=== PATIENT | female | born 1950 | race Caucasian/White ===

== ENCOUNTER 2017-03-29 08:27 | Inpatient (IN) | payer BC ==
[2017-03-29] VITALS (7 sets, daily range): BP systolic 113–161; BP diastolic 48–88
[~2017-03-29] VITALS: Ht 175.3 cm; Wt 125.2 kg
--- NOTE | ~2017-03-29 | 2DMMODE ---
[facility] [address] [place] [address] 2 D/M-MODE ECHOCARDIOGRAM Name: KATHERINE MATHEWS Room #: 201-P [facility]#: [id number] Admission: 03/29/17 Attend Phys: Doug Freeman, Discharge: Date of : 54 Date of Service: 03/29/17 1650 Report #: [id number] THIS REPORT FOR: //name// APPROVED REPORT Study performed: 03/29/2017 14:45:09 EXAM: Comprehensive 2D, Doppler, and color-flow Echocardiogram Patient Location: Bedside Room #: 2012 Status: routine BSA: 2.37 HR: 92 bpm BP: 126/69 mmHg Rhythm: Atrial Fibrillation Other Information Study Quality: Adequate Indications Aortic Valve Disease Atrial Fibrillation Chest Pain Hypertension/HDD Echo Enhancing Agent Indication: Endocardial border delineation Agent(s) / Amount(s) Used: Optison 4 cc 2D Dimensions RVDd: 36.37 mm LVEF(%): 45.30 (>50%) IVSd: 13.46 (7-11mm) LVOT Diam: 21.03 (18-24mm) LVDd: 45.02 mm PWd: 13.40 (7-11mm) Ascending Ao: 30.36 (22-36mm) LVDs: 34.93 (25-40mm) Aortic Root: 28.04 mm Robb's LVEF: 45.30 % Volumes Left Atrial Volume (Systole) Single Plane 4CH: 90.26 mL Single Plane 2CH: 66.75 mL LA ESV Index: 37.00 mL/m2 Aortic Valve AoV Peak Landon.: 1.59 m/s [facility] [address] [place] [address] 2 D/M-MODE ECHOCARDIOGRAM Name: REIDKATHERINE Room #: 201-P [facility] IN [facility].#: [id number] Admission: 03/29/17 Attend Phys: Doug Freeman, Discharge: Date of : 54 Date of Service: 03/29/17 1650 Report #: [id number] AO Peak Gr.: 10.09 mmHg LVOT Max P.57 mmHg LVOT Max V: 1.18 m/s JORGE Vmax: 2.58 cm2 AI Vmax: 4.55 m/s AI [place]: 3.40 m/s2 AI PHT: 389.51 ms Pulmonary Valve PV Peak Landon.: 1.14 m/s PV Peak Gr.: 5.19 mmHg Tricuspid Valve TR Peak Landon.: 2.43 m/s TR Peak Gr.: 23.65 mmHg PA Pressure: 24.00 mmHg Left Ventricle The left ventricle is normal size. Mild concentric left ventricular hypertrophy. The left ventricular systolic function is normal. The left ventricular ejection fraction is within the normal range. LVEF is 55-60%. This study is not technically sufficient to allow evaluation of the LV diastolic function due to atrial fibrillation. Right Ventricle The right ventricle is normal size. The right ventricular systolic function is normal. Atria Left atrium is dilated. The right atrium size is normal. Aortic Valve The aortic valve is normal in structure. Aortic valve is calcified. Moderate aortic regurgitation. There is no aortic valvular stenosis. Mitral Valve The mitral valve is normal in structure. Trace to mild mitral regurgitation. No evidence of mitral valve stenosis. Tricuspid Valve The tricuspid valve is normal in structure. There is trace tricuspid regurgitation. Estimated PAP 24 mmHg plus the right atrial pressure. There is no pulmonary hypertension. Pulmonic Valve The pulmonary valve is normal in structure. Trace pulmonic [facility] [address] [place] [address] 2 D/M-MODE ECHOCARDIOGRAM Name: KATHERINE MATHEWS Room #: 201-P [facility] IN .R.#: [id number] Admission: 03/29/17 Attend Phys: Doug Freeman, Discharge: Date of : 54 Date of Service: 03/29/17 1650 Report #: [id number] regurgitation. Great Vessels The aortic root is normal in size. IVC is not well visualized. Pericardium There is no pericardial effusion. <Conclusion> The left ventricle is normal size. LVEF is 55-60%. Left atrium is dilated. The aortic valve is normal in structure. Aortic valve is calcified. Moderate aortic regurgitation. The mitral valve is normal in structure. Trace to mild mitral regurgitation. The tricuspid valve is normal in structure. There is trace tricuspid regurgitation. Estimated PAP 24 mmHg plus the right atrial pressure. There is no pulmonary hypertension. The pulmonary valve is normal in structure. Trace pulmonic regurgitation. There is no pericardial effusion. <ELECTRONICALLY SIGNED> By: Nelson Reeder MD 03/29/171649 49 49 Nelson Reeder MD /INF
--- NOTE | ~2017-03-29 | EKG ---
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 : 1950 Requested By: Brent Butcher Order Number: [id number] MD: Kole Bolden Measurements Intervals [place] Rate: 157 P: [place]: QRS: 18 QRSD: 87 T: 175 QT: 289 QTc: 468 Interpretive Statements Supraventricular tachycardia Repolarization abnormality, prob rate related No previous ECG available for comparison Electronically Signed On 03-29-2017 9:12:00 EMERGENCY DOCTOR by Kole Bolden [email or web address] <ELECTRONICALLY SIGNED> By: Kole Bolden MD, [facility] 03/29/17 0912 0836 0836 Kole Bolden MD, FACC /EPI
--- NOTE | ~2017-03-29 | HC ---
[facility] [place] [address] [place] [address] CONSULTATION Name: KATHERINE MATHEWS Room #: 201-P [facility] M.R.#: [id number] Admission: 03/29/17 Attend Phys: Doug Freeman MD Discharge: Date of : 54 Report #: [id number] THIS REPORT FOR: //name// CC: Abigail Freeman DATE OF SERVICE: 03/29/2017 INFECTIOUS DISEASE CONSULTATION REASON FOR CONSULTATION: Leukocytosis, fever. HISTORY OF PRESENT ILLNESS: A 66-year-old white woman admitted with atrial fibrillation with rapid ventricular response, started on Cardizem and the patient relates unwell since Monday and she is running some fevers up to 101.3. Also, has noted having dark color urine and foul-smelling urine. Other than that, no significant symptoms. Review of systems essentially noncontributory. DRUG ALLERGIES: SULFA. MEDICATIONS: The patient on treatment with Rocephin 2 g IV daily. She is also on Cardizem drip, lisinopril, levothyroxine, sotalol, duloxetine, atorvastatin, apixaban, magnesium and potassium supplementation per protocol, zolpidem at bedtime p.r.n. nitroglycerin, nasal p.r.n., polyethylene glycol p.r.n., ondansetron, p.r.n., morphine sulfate p.r.n. 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 Previous history of cholecystectomy. History of laminectomy. Her hemoglobin A1c is shown to be normal. She is on metformin anyway. There appears to be a history of dyslipidemia since she is on atorvastatin and hypothyroidism since she is on levothyroxine. 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 REVIEW OF SYSTEMS: Noncontributory. PHYSICAL EXAMINATION: GENERAL AND VITAL SIGNS: A well-developed, overweight woman, not toxic looking, afebrile since admission presenting the following vital signs: Temperature 98.6, pulse 98-163, respirations 20, BP 126/69. HEENMT: Within range. NECK: Supple, no thyromegaly. LUNGS: Clear. HEART: S1, S2 irregular rhythm. Sternal scar with evidence of previous [facility] [address] [place] [address] CONSULTATION Name: KATHERINE MATHEWS Kailey Room #: 201-P [facility] .R.#: [id number] Admission: 03/29/17 Attend Phys: Doug Freeman MD Discharge: Date of : 54 Report #: [id number] infection. ABDOMEN: Obese, soft, no masses or megaly. PELVIC AND RECTAL: Deferred. EXTREMITIES: No clubbing, cyanosis. NEUROLOGIC: Grossly within normal limits. LABORATORY DATA: Sodium 129, potassium 3.3, creatinine 1.3, glucose 179. Magnesium 1.5, lactic acid 2.2. WBC 28,800, hemoglobin 13.1 g/dL, platelets 315,000. Urinalysis revealed 2+ protein, trace ketones, 1+ bilirubin, positive Ictotest, 2+ blood, positive nitrite, greater than 25 wbc's per HPF, 3-10 rbc's per HPF, many bacteria, few coarse granular casts. Chest x-ray revealed cardiomegaly and evidence of previous median sternotomy and question foreign body in the sternum. Blood cultures pending. Urine culture pending. Influenza rapid test negative for A and B antigens. ASSESSMENT: 1. Febrile illness of undetermined etiology. 2. Possible acute urinary tract infection. 3. Possibly, biliary tree pathology. 4. Atrial fibrillation with rapid ventricular response. 5. Diabetes mellitus. 6. Mild lactic acidemia. 7. Hypertension. 8. Dyslipidemia. 9. Status post open heart surgery and cholecystectomy. SUGGESTIONS: Recommend ESR, CRP, procalcitonin. Liver function tests. Discontinue Rocephin, start Zosyn 3.375 g IV every 6 hours. Evaluation of biliary tree for possible common bile duct stones. If abnormal LFTs, detected by blood test. Dr. Freeman, thank you for requesting my suggestions in the care of your patient. <ELECTRONICALLY SIGNED> By: El Nance MD 03/30/17 1009 1604 0313 El Nance MD /nt
[2017-03-29 08:52] LABS: HEMATOCRIT 39.9 % (37.0-47.0); HEMOGLOBIN 13.1 gm/dL (12.0-15.0); MCH 27.1 pg (26.0-34.0); MCHC 32.8 g/dL (28.0-37.0); MCV 82.7 fL (80.0-100.0); PLATELET COUNT 315 thou/uL (150-400); RBC 4.82 mil/uL (4.20-5.00); RDW 14.2 % (10.5-14.5); WBC 28.8 thou/uL (4.0-11.0)
[2017-03-29 08:59] LABS: ANION GAP 12 mmol/L (7-16); BUN 12 mg/dL (7-18); CALCIUM 8.9 mg/dL (8.5-10.1); CHLORIDE 91 mmol/L (98-107); CO2 26 mmol/L (21-32); CREATININE 1.3 mg/dL (0.6-1.0); GLUCOSE 179 mg/dL (74-106); POTASSIUM 3.3 mmol/L (3.5-5.1); SODIUM 129 mmol/L (136-145)
[2017-03-29 09:07] LABS: TROPONIN-I < 0.04 ng/mL (<0.06)
[2017-03-29] MEDS ORDERED: ELIQUIS5 MG PO (09:26)
[2017-03-29] MEDS ORDERED: GLUCOPHAGE XR750 MG PO (09:27)
[2017-03-29] MEDS ORDERED: SYNTHROID88 MCG PO (09:27)
[2017-03-29] MEDS ORDERED: ATORVASTATIN CA40 MG PO (09:28)
[2017-03-29] MEDS ORDERED: SORINE 80 MG TA80 M1 PO (09:28)
[2017-03-29] MEDS ORDERED: NITROGLYCERIN0.4 MG SUBLING (09:29)
[2017-03-29] MEDS ORDERED: AMBIEN 5 MG TABL5 M1 PO (09:29)
[2017-03-29] MEDS ORDERED: CYMBALTA60 MG PO (09:29)
[2017-03-29] MEDS ORDERED: ALTACE10 MG PO (09:30)
[2017-03-29 09:31] LABS: ABSOLUTE NEUTROPHILS 25.3 thou/uL (1.4-8.2)
[2017-03-29 09:33] LABS: LARGE PLATELETS FEW; POLYCHROMASIA OCCASIONAL
[2017-03-29 10:16] LABS: URINE BILIRUBIN 1+ (Negative); URINE BLOOD 2+ (Negative); URINE CLARITY CLEAR; URINE COLOR YELLOW; URINE GLUCOSE-RANDOM* NEGATIVE (Negative); URINE KETONES TRACE (Negative); URINE PROTEIN (DIPSTICK) 2+ (Negative); URINE SPECIFIC GRAVITY 1.025 (1.005-1.035)
[2017-03-29 10:17] LABS: URINE LEUKOCYTES-REFLEX 1+ (Negative); URINE NITRITE-REFLEX POSITIVE (Negative)
[2017-03-29 10:18] LABS: ICTOTEST (BILI CONFIRMATORY) Positive (Negative)
[2017-03-29 10:26] LABS: BACTERIA-REFLEX >30 Many /HPF (None Seen); SQUAMOUS 0-3 Few /LPF (0-3); URINE RBC 3-10 Few /HPF (0-2); URINE WBC-REFLEX >25 Many /HPF (0-5)
[2017-03-29 10:27] LABS: COARSE GRANULAR CASTS 0-3 Few /LPF (None Seen); CRYSTALS None Seen /LPF (None Seen); FINE GRANULAR CASTS 0-3 Few /LPF (None Seen); MUCUS 4-6 Moderate strn/LPF (None Seen)
[2017-03-29 16:11] LABS: ALBUMIN 2.8 g/dL (3.4-5.0); DIRECT BILIRUBIN 0.3 mg/dL (<0.1-0.3); TOTAL PROTEIN 7.2 g/dL (6.4-8.2)
[2017-03-29 20:31] LABS: CALCIUM 7.9 mg/dL (8.5-10.1); CREATININE 1.2 mg/dL (0.6-1.0); MAGNESIUM 1.5 mg/dL (1.8-2.4); POTASSIUM 3.2 mmol/L (3.5-5.1)
[2017-03-30 04:09] LABS: HEMATOCRIT 31.7 % (37.0-47.0); MCH 26.8 pg (26.0-34.0); MCHC 32.4 g/dL (28.0-37.0); MCV 82.8 fL (80.0-100.0); RBC 3.83 mil/uL (4.20-5.00); RDW 14.3 % (10.5-14.5); WBC 18.3 thou/uL (4.0-11.0)
[2017-03-30 04:15] LABS: CALCIUM 7.9 mg/dL (8.5-10.1); CREATININE 1.2 mg/dL (0.6-1.0); MAGNESIUM 1.5 mg/dL (1.8-2.4); POTASSIUM 3.2 mmol/L (3.5-5.1)
[2017-03-30 04:18] LABS: HEMOGLOBIN 10.3 gm/dL (12.0-15.0)
[2017-03-30 04:43] VITALS: BP 117/54
[2017-03-30 07:44] VITALS: BP 131/47
[2017-03-30 08:35] LABS: MAGNESIUM 1.6 mg/dL (1.8-2.4); POTASSIUM 3.8 mmol/L (3.5-5.1)
[2017-03-30 11:34] VITALS: BP 134/65
[2017-03-30 16:06] VITALS: BP 117/69
[2017-03-30 19:23] VITALS: BP 121/93
[2017-03-31 04:11] VITALS: BP 124/65
[2017-03-31 04:59] LABS: HEMOGLOBIN 9.2 gm/dL (12.0-15.0); MCH 27.4 pg (26.0-34.0); MCHC 32.9 g/dL (28.0-37.0); MCV 83.1 fL (80.0-100.0); RBC 3.37 mil/uL (4.20-5.00); RDW 14.8 % (10.5-14.5)
[2017-03-31 05:29] LABS: CALCIUM 8.2 mg/dL (8.5-10.1); CREATININE 1.1 mg/dL (0.6-1.0); MAGNESIUM 2.2 mg/dL (1.8-2.4); POTASSIUM 3.5 mmol/L (3.5-5.1)
[2017-03-31 07:13] VITALS: BP 133/65
[2017-03-31 11:02] VITALS: BP 136/69
[2017-03-31 15:10] VITALS: BP 141/91
[2017-03-31 20:09] VITALS: BP 129/63
[2017-04-01 04:09] VITALS: BP 138/72
[2017-04-01 05:54] LABS: HEMATOCRIT 27.6 % (37.0-47.0); HEMOGLOBIN 9.2 gm/dL (12.0-15.0); MCH 27.8 pg (26.0-34.0); MCHC 33.5 g/dL (28.0-37.0); MCV 82.9 fL (80.0-100.0); RBC 3.33 mil/uL (4.20-5.00); RDW 14.8 % (10.5-14.5); WBC 9.2 thou/uL (4.0-11.0)
[2017-04-01 06:08] LABS: CALCIUM 8.2 mg/dL (8.5-10.1); MAGNESIUM 2.1 mg/dL (1.8-2.4); POTASSIUM 3.7 mmol/L (3.5-5.1)
[2017-04-01 08:00] VITALS: BP 148/72
[2017-04-01 12:00] VITALS: BP 149/67
[2017-04-01] MEDS ORDERED: AMOXICILLIN 50500 M1 PO (12:26)
[2017-04-01] MEDS ORDERED: SOTALOL 120 MG120 MG PO (12:27)
[2017-04-01 12:38] VITALS: BP 149/67
[2017-11-03] MEDS ORDERED: SYNTHROID112 MC1 PO (08:53)
[2017-11-03] MEDS ORDERED: IMDUR 30 MG TAB30 M1 PO (08:55)
[2017-11-03] MEDS ORDERED: ALLOPURINOL 10100 M1 PO (08:55)
[2017-11-03] MEDS ORDERED: XANAX 0.5 MG0.5 MG PO (08:55)
[2017-11-03] MEDS ORDERED: DEMADEX20 MG PO (08:56)
[2017-11-03] MEDS ORDERED: CRESTOR40 MG PO (08:56)
[2017-11-03] MEDS ORDERED: IRON325 PO (08:56)
== END 2017-04-01 14:39 | disposition home or self-care (01) | DRG 872 ==
LOC: ER 08:27 → 2N 10:51
PROVIDERS: Emergency Medicine; Internal Medicine; Internal Medicine Cardiovascular Disease; Internal Medicine Infectious Disease
DX: A41.9 Sepsis, unspecified organism (principal); N10 Acute pyelonephritis; I48.0 Paroxysmal atrial fibrillation; I10 Essential (primary) hypertension; E78.5 Hyperlipidemia, unspecified; M19.90 Unspecified osteoarthritis, unspecified site; E11.40 Type 2 diabetes mellitus with diabetic neuropathy, unspecified; E03.9 Hypothyroidism, unspecified; D64.9 Anemia, unspecified; E83.42 Hypomagnesemia; E87.6 Hypokalemia; D72.829 Elevated white blood cell count, unspecified; B96.20 Unspecified Escherichia coli [E. coli] as the cause of diseases classified elsewhere; Z79.84 Long term (current) use of oral hypoglycemic drugs; Z79.899 Other long term (current) drug therapy; Z90.710 Acquired absence of both cervix and uterus; Z90.49 Acquired absence of other specified parts of digestive tract; Z86.14 Personal history of Methicillin resistant Staphylococcus aureus infection; Z88.2 Allergy status to sulfonamides; Z82.49 Family history of ischemic heart disease and other diseases of the circulatory system
CPT/HCPCS: 10081

== ENCOUNTER → 2019-01-03 | Outpatient (CLI) | payer OTHER ==
[~2019-01-03] MED LIST: ALLOPURINOL 10100 M1 PO; ALTACE10 MG PO; AMBIEN 5 MG TABL5 M1 PO; AMOXICILLIN 50500 M1 PO; ATORVASTATIN CA40 MG PO; CRESTOR40 MG PO; CYMBALTA60 MG PO; DEMADEX20 MG PO; ELIQUIS5 MG PO; IMDUR 30 MG TAB30 M1 PO; IRON325 PO; METFORMIN HCL500 M1 PO; NITROGLYCERIN0.4 MG SUBLING; SORINE 80 MG TA80 M1 PO; SOTALOL 120 MG120 MG PO; SYNTHROID112 MC1 PO; SYNTHROID88 MCG PO; XANAX 0.5 MG0.5 MG PO
[2019-01-03 13:10] VITALS: BP 95/31
--- NOTE | 2019-01-03 13:55 | NUR ---
PT HERE DIRECTLY FROM DR. SOLANO'S OFFICE FOR IV PUSH LASIX WITH RECENT CHF ISSUES. PT VERBALIZED PLAN WITH GOOD SHOW OF UNDERSTANDING. STATES THE DOCTOR HAS INCREASED HER TORSEMIDE TO 60MG FROM 40 DAILY. HAS ONGOING ISSUES WITH DIZZINESS WHICH SHE STATES THEY FEEL IS MORE NEUROLOGICALLY RELATED AND SHE HAS BEEN REFERRED TO A NEUROLOGIST FOR THIS. LASIX GIVEN IVP OVER 9-10 MINUTES. DISMISSED IMMEDIATELY POST SO SHE COULD GET HOME BEFORE DIURESIS ENSUED.
== END ==
LOC: OPONC 12:39
DX: I50.9 Heart failure, unspecified (principal)
CPT/HCPCS: 95113

== ENCOUNTER 2019-03-08 09:59 | Inpatient (IN) | payer OTHER ==
[~2019-03-08] VITALS: Ht 172.7 cm; Wt 128.4 kg
[2019-03-08 09:59] VITALS: BP 159/81
[2019-03-08] MEDS ORDERED: AMIODARONE HCL400 MG PO (10:17)
[2019-03-08 10:33] LABS: ABSOLUTE NEUTROPHILS 13.7 thou/uL (1.4-8.2); BASOPHILS 0.4 % (0.0-2.0); EOSINOPHILS 0.3 % (0.0-3.0); HEMATOCRIT 36.4 % (37.0-47.0); HEMOGLOBIN 11.3 gm/dL (12.0-15.0); LYMPHOCYTES 12.3 % (24.0-44.0); MCH 25.1 pg (26.0-34.0); MCHC 31.2 g/dL (28.0-37.0); MCV 80.6 fL (80.0-100.0); MONOCYTES 3.4 % (1.0-8.0); PLATELET COUNT 436 thou/uL (150-400); POLYS 83.6 % (36.0-66.0); RBC 4.51 mil/uL (4.20-5.00); WBC 16.5 thou/uL (4.0-11.0)
[2019-03-08 10:42] LABS: ANION GAP 15 mmol/L (7-16); BUN 41 mg/dL (7-18); CALCIUM 9.5 mg/dL (8.5-10.1); CHLORIDE 92 mmol/L (98-107); CO2 27 mmol/L (21-32); GLUCOSE 197 mg/dL (74-106); SODIUM 134 mmol/L (136-145); TROPONIN-I <0.06 ng/mL (<0.06)
[2019-03-08 10:44] LABS: POTASSIUM 2.9 mmol/L (3.5-5.1)
[2019-03-08 11:23] VITALS: BP 104/51
[2019-03-08 11:40] LABS: ANISOCYTOSIS 2+; OVALOCYTES FEW
[2019-03-08 13:07] VITALS: BP 112/58
[2019-03-08 13:32] VITALS: BP 93/74
--- NOTE | 2019-03-08 13:57 | EKG ---
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
--- NOTE | 2019-03-08 17:03 | NUR ---
NEW ADMIT FOR AFIB WITH RVR, ORIENTED X4, FROM HOME. DENIES NAUSEA, DENIES SOB, DENIES CHEST PAIN/PRESSURE. ON A AMIODORONE DRIP AT THIS TIME AND AFIB ON TELE IN THE LOW 100'S. INDEPENDENT IN ROOM WITH BATHROOM PRIVLEDGES. BS AC/HS AND WNL. LUNGS CLEAR ON ROOM AIR. PT CALM AND APPROPRIATE. ADMISSION ASSESMENT AND HISTORY COMPLETED. CONSENTS SIGNED. ORIENTED TO ROOM. CARDIOLOGY METAL CUTTER ROUNDED ON PT IN ED. CALL LIGHT IN REACH. CONTINUE TO MONITOR
[2019-03-08 19:31] VITALS: BP 111/64
[2019-03-08 23:51] VITALS: BP 129/80
--- NOTE | 2019-03-09 01:17 | NUR ---
ASSESSMENTS CHARTED, MEDS GIVEN CHARTED. PATIENT ON AMIO DRIP DURING SHIFT FOR AFIB W/ RVR. DENIED CHEST PAIN USING CPAP NOC. UP AT FROY IN ROOM. FINISHED BAG OF NORMAL SALINE WITH POTASSIUM. PLAN OF CARE IS TO CONTINUE MONITORING CURRENT CARES.
[2019-03-09 03:35] VITALS: BP 128/67
[2019-03-09 04:04] LABS: CALCIUM 9.4 mg/dL (8.5-10.1); CREATININE 2.6 mg/dL (0.6-1.0)
[2019-03-09 04:23] LABS: POTASSIUM 2.9 mmol/L (3.5-5.1)
[2019-03-09 04:47] LABS: HEMATOCRIT 30.1 % (37.0-47.0); HEMOGLOBIN 9.6 gm/dL (12.0-15.0); MCH 25.4 pg (26.0-34.0); MCHC 31.9 g/dL (28.0-37.0); MCV 79.4 fL (80.0-100.0); RBC 3.78 mil/uL (4.20-5.00); RDW 19.1 % (10.5-14.5); WBC 13.1 thou/uL (4.0-11.0)
[2019-03-09 07:35] VITALS: BP 118/53
[2019-03-09 11:02] LABS: URINE BILIRUBIN NEGATIVE (Negative); URINE BLOOD 1+ (Negative); URINE CLARITY CLEAR; URINE COLOR YELLOW; URINE GLUCOSE-RANDOM* NEGATIVE (Negative); URINE KETONES NEGATIVE (Negative); URINE LEUKOCYTES-REFLEX TRACE (Negative); URINE NITRITE-REFLEX NEGATIVE (Negative); URINE PROTEIN (DIPSTICK) 1+ (Negative); URINE UROBILINOGEN 0.2 E.U./dl (0.2-1.0)
[2019-03-09 11:17] LABS: SQUAMOUS 0-3 Few /LPF (0-3)
[2019-03-09 11:18] LABS: URINE WBC-REFLEX 0-5 Rare /HPF (0-5)
[2019-03-09 11:19] LABS: BACTERIA-REFLEX None Seen /HPF (None Seen); CASTS None Seen /LPF (None Seen); CRYSTALS None Seen /LPF (None Seen); URINE RBC 0-2 Rare /HPF (0-2)
[2019-03-09 11:41] LABS: MAGNESIUM 1.8 mg/dL (1.8-2.4); POTASSIUM 3.8 mmol/L (3.5-5.1)
[2019-03-09 12:15] VITALS: BP 180/87
[2019-03-09] MEDS ORDERED: JANUVIA50 MG PO (13:51)
[2019-03-09] MEDS ORDERED: BUSPAR30 MG PO (14:03)
[2019-03-09 15:50] VITALS: BP 125/43
--- NOTE | 2019-03-09 16:18 | NUR ---
ASSUMED CARE 0700. ORIENTED X4, FROM HOME, DENIES CHEST PAIN, DENIES SOB. CONTINUES ON AMIODARONE PER ORDERS, SA ON TELE. PARTIAL SELF CARE BATH. INDEPENDENT IN ROOM. HYPOKALEMIA TREAT WITH K+IVPB WITH LABS NOW IN NORMAL LIMITS. BLOOD SUGARS /HS BEING TREATED PER LOW SLIDING SCALE INSULIN. CALLS APPROPRIATELY. CONTINUE TO MONITOR
[2019-03-09 19:33] VITALS: BP 138/48
--- NOTE | 2019-03-10 04:30 | NUR ---
ASSESSMENTS CHARTED, MEDS CHARTED GIVEN. PATIENT RESTING IN BED DURING SHIFT. UP AT FROY IN ROOM. ON AMIODARONE DRIP AT 16.7ML/HR, STILL AFIB. ON ROOM AIR DURING DAY, CPAP AT NIGHT. DENIED PAIN. PATIENT REQUESTED NOC MEDS EARLY POSSIBLE SO SHE COULD SLEEP. PLAN OF CARE IS TO TRANSITION TO PO AMIODARONE PRIOR TO GOING HOME.
[2019-03-10 04:41] VITALS: BP 104/32
[2019-03-10 05:01] LABS: HEMATOCRIT 30.1 % (37.0-47.0); HEMOGLOBIN 9.6 gm/dL (12.0-15.0); MCH 25.6 pg (26.0-34.0); MCHC 31.8 g/dL (28.0-37.0); MCV 80.4 fL (80.0-100.0); RBC 3.74 mil/uL (4.20-5.00); WBC 10.7 thou/uL (4.0-11.0)
[2019-03-10 05:07] LABS: CALCIUM 9.1 mg/dL (8.5-10.1); CREATININE 2.4 mg/dL (0.6-1.0); POTASSIUM 3.7 mmol/L (3.5-5.1)
[2019-03-10 07:40] VITALS: BP 172/64
--- NOTE | 2019-03-10 09:51 | NUR ---
pt resting in chair, said she has no pain right now, asked for something to help her have a bm, miralax powder given in some water. pt drank all of it. said she wants her buspar for ptsd, talked with DR Hernandez who said we don't have it on formulary here, pt's fam may bring in her med. pt declined saying she'll go home tomorrow and can wait till then to take it.
[2019-03-10 11:30] VITALS: BP 173/92
[2019-03-10 15:20] VITALS: BP 117/82
[2019-03-10 19:23] VITALS: BP 124/50
[2019-03-11 03:15] VITALS: BP 108/44
--- NOTE | 2019-03-11 06:22 | NUR ---
A/O X 4.UP INDEPENDENTLY.TOOK HER AMBIEN.USES CPAP AT NIGHT.DENIES PAIN.POC CONTINUED.
[2019-03-11 07:40] VITALS: BP 126/56
[2019-03-11 11:07] LABS: CALCIUM 9.9 mg/dL (8.5-10.1); CREATININE 2.1 mg/dL (0.6-1.0); POTASSIUM 3.6 mmol/L (3.5-5.1)
[2019-03-11 11:55] VITALS: BP 142/53
[2019-03-11] MEDS ORDERED: PACERONE 200 M200 M1 PO (13:37)
[2019-03-11] MEDS ORDERED: METOPROLOL SUCC25 M1 PO (13:37)
[2019-03-11 14:27] VITALS: BP 142/53
--- NOTE | 2019-03-11 14:31 | NUR ---
ASSUMED CARE 0700. A/OX4, DENIES PAIN, DENIES SOB,UP AB FROY, BM TODAY. DISCHARGING HOME WITH SELF CARE. REVIEWED MEDICATIONS AND DC PAPERWORK. IV AND TELE MONITOR REMOVED. EDUCATED TO FOLLOW UP WITH CARDIOLOGY AND NEPHROLOGY AND PCP
== END 2019-03-11 15:23 | disposition home or self-care (01) | DRG 308 ==
LOC: ER 09:59 → 2N 11:22 → EROBS 11:22 → 2N 13:07 → ENTRNSPT 03-11 15:10 → EDTRNSPTSTS 03-11 15:13 → 2N 03-11 15:23
PROVIDERS: Emergency Medicine; Nurse Practitioner Adult Health; Nurse Practitioner Family; ADMIT Hospitalist
DX: I48.0 Paroxysmal atrial fibrillation (principal); N17.0 Acute kidney failure with tubular necrosis; I13.0 Hypertensive heart and chronic kidney disease with heart failure and stage 1 through stage 4 chronic kidney disease, or unspecified chronic kidney disease; E78.00 Pure hypercholesterolemia, unspecified; E78.5 Hyperlipidemia, unspecified; E87.6 Hypokalemia; M19.90 Unspecified osteoarthritis, unspecified site; G57.91 Unspecified mononeuropathy of right lower limb; I50.9 Heart failure, unspecified; N18.3 Chronic kidney disease, stage 3 (moderate); E11.22 Type 2 diabetes mellitus with diabetic chronic kidney disease; E03.9 Hypothyroidism, unspecified; F43.10 Post-traumatic stress disorder, unspecified; F41.9 Anxiety disorder, unspecified; Z79.01 Long term (current) use of anticoagulants; Z90.49 Acquired absence of other specified parts of digestive tract; Z98.1 Arthrodesis status; Z90.710 Acquired absence of both cervix and uterus; Z79.84 Long term (current) use of oral hypoglycemic drugs; Z79.899 Other long term (current) drug therapy; Z88.2 Allergy status to sulfonamides
CPT/HCPCS: 10081

== ENCOUNTER → 2019-05-03 | Outpatient (CLI) | payer OTHER ==
[~2019-05-03] VITALS: Ht 172.7 cm; Wt 123.8 kg
[~2019-05-03] MED LIST changes: +AMIODARONE HCL400 MG PO; +BUSPAR30 MG PO; +GLUCOPHAGE1000 MG PO; +JANUVIA50 MG PO; +METOPROLOL SUCC25 M1 PO; +PACERONE 200 M200 M1 PO; +PACERONE200 MG PO; +TOPROL XL25 MG PO
--- NOTE | 2019-05-04 11:45 | P ---
[facility] [place] [address] [place] [address] PROCEDURE REPORT Name: KATHERINE MATHEWS Room #: REG CARINA [facility]#: [id number] Admission: 05/03/19 Attend Phys: Tre Meadows MD Discharge: Date of : 54 Report #: [id number] THIS REPORT FOR: cc: Abigail Wade MD,Abigail Meadows,Tre Edmond MD ~ CC: Abigail Meadows DATE OF SERVICE: 05/03/2019 OUTPATIENT COLONOSCOPY REPORT BRIEF HISTORY: The patient is a 68-year-old woman who had a colonoscopy at [facility] about 5 years ago. She tells me multiple polyps were removed and she was advised to come back in a year, but did not do so. She now presents for high risk screening colonoscopy. PREOPERATIVE DIAGNOSIS: High risk screening colonoscopy. POSTOPERATIVE DIAGNOSES: 1. Colon polyps. 2. Diverticulosis coli, right and left colon. MEDICATIONS: Deep sedation with propofol per anesthesia. SPECIMENS: 1. Cecal polyp. 2. Hepatic flexure polyp. ESTIMATED BLOOD LOSS: 3 mL. PROCEDURE: Colonoscopy to cecum and terminal ileum with snare polypectomy and biopsy. FINDINGS: Prior to propofol sedation, procedure of colonoscopy discussed with the patient as well as potential risks and its complications. She indicates she understands and desires to proceed. DESCRIPTION OF PROCEDURE: With the patient in left lateral decubitus position, digital examination was completed, which revealed no abnormalities. Subsequently, the Lectorati video colonoscope was introduced into the rectum, advanced under direct vision to the cecum. Done with minimal difficulty. The cecum was identified by the ileocecal valve and the appendiceal orifice. I was able to visualize the very distal segment of terminal ileum, which was inspected [facility] [address] [place] [address] PROCEDURE REPORT Name: KATHERINE AMBROCIO Room #: REG CARINA [facility]#: [id number] Admission: 05/03/19 Attend Phys: Tre Meadows MD Discharge: Date of : 54 Report #: [id number] and noted to be unremarkable. At that point, the scope was slowly withdrawn and careful circumferential views were obtained. There were some limitations of the prep. There were pools of liquidy material and particulate matter scattered throughout the colon. We were able to irrigate suction and remove much of this material, but in some areas, including both the proximal colon and distally in particular the rectum, particulate matter could not be removed and there were some limitations of the prep, although much of the mucosa was seen well. As we withdrew the scope, the cecal polyp was seen. There was a 5-6 mm sessile polyp in the cecum was removed by cold snare polypectomy. A few scattered diverticula were seen in the proximal colon. As we withdrew the scope, a diminutive polyp was seen in the hepatic flexure, down between folds and removed with the biopsy forceps. Scope was further withdrawn and no additional neoplastic lesions were seen. Scattered diverticula were seen throughout the colon and most notable in the sigmoid colon. There was no endoscopic evidence of diverticulitis. The scope was withdrawn in the rectum, no abnormalities were seen. Upon retroflexion, no abnormalities were seen. Scope was withdrawn. The patient tolerated the procedure well. CONDITION OF THE PATIENT UPON DISCHARGE: Following procedure, the patient drowsy, aroused, conversant and will be discharged home when fully ambulatory. INSTRUCTIONS TO THE PATIENT AND FAMILY AT THE TIME OF DISCHARGE: Two polyps identified and removed as described above. We will follow up on the pathology. In view of her history of multiple colon polyps as well as finding of polyps today and limitation of the prep, I suggest return in 3 years for followup colonoscopy. She takes Eliquis. She may resume Eliquis tomorrow morning. The patient is morbidly obese. Advised weight loss as obesity is a risk factor for colon neoplasia. <ELECTRONICALLY SIGNED> By: Tre Meadows MD 05/04/19 1145 0820 0829 Tre Meadows MD /nt
--- NOTE | 2019-05-06 17:07 | PATH ---
[facility] [address] [place] [address] PATHOLOGY RPT PROCEDURE Name: KATHERINE DELATORRE TANK Room #: REG CARINA Rose.#: [id number] Admission: 05/03/19 Date of : 54 Discharge: Report #: [id number] Path Case #: [id number] [facility] Accession Number: [id number] . 01 Material submitted: . PART A: cecum - POLYP AT CECUM PART B: hepatic flexure - POLYP AT HEPATIC FLEXURE . 01 Clinical history: . Diverticulitis. . 02 Diagnosis: A. Polyp, at cecum, endoscopic biopsy: - Tubular adenoma. - Negative for high-grade dysplasia. . B. Polyp, at hepatic flexure, endoscopic biopsy: - Inflamed hyperplastic polyp. - Negative for dysplasia. (IUV:ayesha; 05/06/2019) QMS 05/06/2019 1411 Local . 02 Electronically signed: . Anny Sherman MD, Pathologist NPI- [id number] . 01 Gross description: . A. Received in formalin labeled "Katherine Delatorre, polyp at cecum" is a 1.2 x 0.6 x 0.2 cm fragment of teague-brown mucosa. The margin is inked and the specimen is bisected and submitted in A1. . B. Received in formalin labeled "Katherine Delatorre, polyp at hepatic flexure" is a 0.5 x 0.3 x 0.2 cm fragment of teague-brown mucosa. The margin is inked and the specimen is submitted entirely in B1. ([facility]; 05/05/2019) [facility] 05/05/2019 1125 Local . 02 Pathologist provided ICD-10: D12.0, K63.5 . 02 CPT . 182015, 020971 Specimen Comment: A courtesy copy of this report has been sent to [phone], [phone] Specimen Comment: [id number] Specimen Comment: Report sent to / DR CAMPOVERDE Performed at: [address] [place] [address] PATHOLOGY RPT PROCEDURE Name: KATHERINE DELATORRE TANK Room #: REG CARINA Gatica#: [id number] Admission: 05/03/19 Date of : 54 Discharge: Report #: [id number] Path Case #: [id number] [address] [facility] [address], [place] Mer[place] [id number] MD Ko Mckeon MD Phone: [phone] Performed at: [address] [id number] MD Anny Sherman MD Phone: [phone]
== END | disposition home or self-care (01) ==
LOC: GI 06:29
DX: Z12.11 Encounter for screening for malignant neoplasm of colon (principal); Z86.010 Personal history of colon polyps; D12.0 Benign neoplasm of cecum; K51.40 Inflammatory polyps of colon without complications; K57.30 Diverticulosis of large intestine without perforation or abscess without bleeding; I13.0 Hypertensive heart and chronic kidney disease with heart failure and stage 1 through stage 4 chronic kidney disease, or unspecified chronic kidney disease; E11.22 Type 2 diabetes mellitus with diabetic chronic kidney disease; N18.3 Chronic kidney disease, stage 3 (moderate); I50.9 Heart failure, unspecified; E03.9 Hypothyroidism, unspecified; G47.30 Sleep apnea, unspecified; M19.90 Unspecified osteoarthritis, unspecified site; E78.5 Hyperlipidemia, unspecified; G62.9 Polyneuropathy, unspecified; Z98.890 Other specified postprocedural states; D64.9 Anemia, unspecified; Z87.19 Personal history of other diseases of the digestive system; Z90.49 Acquired absence of other specified parts of digestive tract; Z90.710 Acquired absence of both cervix and uterus; Z79.01 Long term (current) use of anticoagulants; Z79.899 Other long term (current) drug therapy; Z88.2 Allergy status to sulfonamides
CPT/HCPCS: 62110; 62900

== ENCOUNTER 2019-05-06 06:14 | Inpatient (IN) | payer OTHER ==
[2019-05-06] VITALS (8 sets, daily range): BP systolic 127–181; BP diastolic 38–82
[~2019-05-06] VITALS: Ht 175.3 cm; Wt 127.6 kg
--- NOTE | ~2019-05-06 | HC ---
[facility] [address] [address] CONSULTATION Name: KATHERINE MATHEWS Room #: 213-P ADM IN M.R.#: [id number] Admission: 05/06/19 Attend Phys: Sekou Valdovinos MD Discharge: Date of : 54 Report #: [id number] THIS REPORT FOR: cc: Abigail Wade MD,Abigail Mckeon,Sera Bruce MD ~ CC: Abigail Valdovinos DATE OF SERVICE: 05/07/2019 REASON FOR CONSULTATION: Elevated creatinine. REASON FOR PRESENTATION: Shortness of breath. HISTORY OF PRESENT ILLNESS: A 68-year-old with known history of hypertension, hyperlipidemia, AFib and RVR. She is followed by the cardiac team as an outpatient. She is known to have diabetes mellitus with complications related to that including diabetic nephropathy. She last saw me in the clinic in February of this year and her creatinine was 2.0. She had episodes of acute kidney injury after cardiac catheterization previously. She was also taking some nonsteroidal anti-inflammatory medications. This has resolved and her creatinine had stabilized anywhere from 1.8-2.0. She presented yesterday with significant shortness of breath, lower extremity edema. She admits to dietary nondiscretion. She also admits to excessive water intake. She was found to have an elevated creatinine at 2.9 mandating a Nephrology consultation. She denies any active urinary symptoms. She is currently being followed by the cardiac team. PAST MEDICAL HISTORY: 1. Hysterectomy and bilateral oophorectomy. 2. Chronic kidney disease with a baseline creatinine of around 2.0. 3. Diabetes mellitus. 4. Hypertension. 5. Hyperlipidemia. 6. Remote history of methicillin-resistant Staphylococcus aureus. 7. 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 8. Diastolic heart failure. 9. Hypothyroidism. 10. Depression and anxiety. 11. Repeated episodes of acute kidney injury. MEDICATIONS: 1. Januvia. 2. Crestor. [facility] [address] [place] [address] CONSULTATION Name: KATHERINE MATHEWS Room #: [address] [place] [address] IN M.R.#: [id number] Admission: 05/06/19 Attend Phys: Sekou Valdovinos MD Discharge: Date of : 54 Report #: [id number] 3. Eliquis. 4. Metformin. 5. Alprazolam. 6. Metoprolol. ALLERGIES: SULFA. REVIEW OF SYSTEMS: GENERAL: No fever or chills. CARDIOVASCULAR: Significant for shortness of breath and lower extremity edema. PULMONARY: No cough or hemoptysis, but significant for dyspnea on exertion. GASTROINTESTINAL: No nausea or vomiting. GENITOURINARY: No frequency, no urgency. MUSCULOSKELETAL: Occasional arthralgias and back pain. NEUROLOGICAL: No headache, no dizziness. SOCIAL HISTORY: She denies drug or alcohol abuse. FAMILY HISTORY: Significant for diabetes mellitus and hypertension. PHYSICAL EXAMINATION: GENERAL: She is alert, oriented, in no apparent distress. VITAL SIGNS: Blood pressure is 124/51, temperature is 36.6. HEAD AND NECK: No jugular venous distention, no bruit, no thyromegaly. CHEST: Decreased air entry bilaterally with no crackles. CARDIOVASCULAR: Regular with no rub detected. ABDOMEN: Soft, nontender with no hepatosplenomegaly. LOWER EXTREMITIES: Marginal +1 edema. NEUROLOGIC: Power and sensations are intact. No gross cranial nerve deficits. LABORATORY VALUES: Reviewed. Hemoglobin is 8.5. Chemistry from yesterday revealed sodium of 132, potassium 3.4, BUN of 35, creatinine of 2.9. AST and ALT are elevated. ASSESSMENT AND PLAN: 1. Acute kidney injury. 2. Chronic kidney disease with a baseline creatinine of around 2.0. 3. Diastolic heart failure. 4. Multiple valvular heart issues. 5. Diabetes mellitus. 6. Hypertension. 7. Atrial fibrillation. 8. Remote history of emergent open heart surgery after an ablation procedure. 9. The patient does admit to nondiscretion with diet and fluid restriction. 10. I will initiate [place] [address] CONSULTATION Name: KATHERINE MATHEWS Room #: [facility] ADM IN M.R.#: [id number] Admission: 05/06/19 Attend Phys: Sekou Valdovinos MD Discharge: Date of : 54 Report #: [id number] 11. Fluid restrictions. 12. Salt restrictions. 13. Cardiology managing her current cardiac issues. 14. Daily body weight. 15. Avoid nephrotoxins. 16. We will continue to follow. By: [id number] Sera Mckeon MD /nt
[2019-05-06 07:10] LABS: URINE BILIRUBIN NEGATIVE (Negative); URINE BLOOD 1+ (Negative); URINE CLARITY CLEAR; URINE COLOR YELLOW; URINE GLUCOSE-RANDOM* NEGATIVE (Negative); URINE KETONES NEGATIVE (Negative); URINE LEUKOCYTES-REFLEX TRACE (Negative); URINE NITRITE-REFLEX NEGATIVE (Negative); URINE PROTEIN (DIPSTICK) 1+ (Negative); URINE UROBILINOGEN 0.2 E.U./dl (0.2-1.0)
[2019-05-06 07:29] LABS: ABSOLUTE NEUTROPHILS 8.1 thou/uL (1.4-8.2); BASOPHILS 0.8 % (0.0-2.0); EOSINOPHILS 0.9 % (0.0-3.0); HEMATOCRIT 26.5 % (37.0-47.0); HEMOGLOBIN 8.5 gm/dL (12.0-15.0); LYMPHOCYTES 10.4 % (24.0-44.0); MCH 25.5 pg (26.0-34.0); MCV 79.8 fL (80.0-100.0); MONOCYTES 4.7 % (1.0-8.0); PLATELET COUNT 375 thou/uL (150-400); POLYS 83.2 % (36.0-66.0); RBC 3.32 mil/uL (4.20-5.00); RDW 18.4 % (10.5-14.5); WBC 9.8 thou/uL (4.0-11.0)
[2019-05-06 07:30] LABS: ANION GAP 9 mmol/L (7-16); BUN 35 mg/dL (7-18); CALCIUM 8.9 mg/dL (8.5-10.1); CHLORIDE 96 mmol/L (98-107); CO2 27 mmol/L (21-32); CREATININE 2.9 mg/dL (0.6-1.0); GLUCOSE 126 mg/dL (74-106); POTASSIUM 3.4 mmol/L (3.5-5.1); SODIUM 132 mmol/L (136-145)
[2019-05-06 07:41] LABS: ALBUMIN 2.6 g/dL (3.4-5.0); MAGNESIUM 1.7 mg/dL (1.8-2.4); SGOT 42 U/L (15-37); SGPT 66 U/L (30-65); TOTAL BILIRUBIN 0.4 mg/dL (<0.1-1.0); TOTAL PROTEIN 6.4 g/dL (6.4-8.2); TROPONIN-I <0.06 ng/mL (<0.06)
[2019-05-06 07:47] LABS: APTT 36.2 Seconds (24.5-32.8); INR 1.1; PROTIME 11.1 Seconds (9.3-11.4)
[2019-05-06 07:48] LABS: CASTS None Seen /LPF (None Seen); CRYSTALS None Seen /LPF (None Seen); SQUAMOUS >10 Many /LPF (0-3); URINE RBC 0-2 Rare /HPF (0-2); URINE WBC-REFLEX 0-5 Rare /HPF (0-5)
[2019-05-06 07:49] LABS: BACTERIA-REFLEX 1-9 Few /HPF (None Seen)
--- NOTE | 2019-05-06 12:22 | 2DMMODE ---
[facility] [address] [place] [address] 2 D/M-MODE ECHOCARDIOGRAM Name: KATHERINE MATHEWS Room #: 213-P ADM IN M.R.#: [id number] Admission: 05/06/19 Attend Phys: Sekou aVldovinos MD Discharge: Date of : 54 Report #: [id number] THIS REPORT FOR: cc: Abigail Wade MD, Emily G. MD Lammoglia, Francisco J. MD ~ APPROVED REPORT Study performed: 05/06/2019 10:43:26 EXAM: Comprehensive 2D, Doppler, and color-flow Echocardiogram Patient Location: Bedside Room #: 213 Status: routine BSA: 2.42 HR: 74 bpm BP: 146/67 mmHg Rhythm: NSR Other Information Study Quality: Adequate Indications Congestive Heart Failure Diabetes Hypertension/HDD Hx afib s/p ablation, HLD, SOA Echo Enhancing Agent Indication: Endocardial border delineation Agent(s) / Amount(s) Used: Optison 3 cc 2D Dimensions RVDd: 43.09 mm IVSd: 12.93 (7-11mm) LVOT Diam: 22.11 (18-24mm) LVDd: 52.14 mm PWd: 13.45 (7-11mm) Ascending Ao: 31.20 (22-36mm) LVDs: 29.64 (25-40mm) Aortic Root: 28.08 mm IVC: 17.00 mm Volumes Left Atrial Volume (Systole) Single Plane 4CH: 86.21 mL Single Plane 2CH: 72.75 mL LA ESV Index: 35.00 mL/m2 [facility] [address] [address] 2 D/M-MODE ECHOCARDIOGRAM Name: KATHERINE MATHEWS Room #: 213-P [facility] IN .R.#: [id number] Admission: 05/06/19 Attend Phys: Sekou Valdovinos MD Discharge: Date of : 54 Report #: [id number] Aortic Valve AoV Peak Landon.: 1.67 m/s AO Peak Gr.: 11.18 mmHg LVOT Max P.02 mmHg LVOT Max V: 1.32 m/s JORGE Vmax: 3.04 cm2 AI Vmax: 4.63 m/s AI [place]ec[place]: 3.53 m/s2 AI PHT: 379.54 ms Mitral Valve E/A Ratio: 4.6 MV Decel. Time: 225.10 ms MV E Max Landon.: 1.30 m/s MV A Landon.: 0.28 m/s MV PHT: 65.28 ms IVRT: 92.27 ms Pulmonary Valve PV Peak Landon.: 1.14 m/s PV Peak Gr.: 5.28 mmHg Pulmonary Vein P Vein S: 0.53 m/s P Vein A: 0.16 m/s P Vein D: 0.83 m/s P Vein A Dur.: 124.6 msec P Vein S/D Ratio: 0.64 Tricuspid Valve TR Peak Landon.: 3.43 m/s RAP Estimate: 5.00 mmHg TR Peak Gr.: 47.00 mmHg PA Pressure: 52.00 mmHg Left Ventricle The left ventricle is normal size. There is normal LV segmental wall motion. Mild concentric left ventricular hypertrophy. The left ventricular systolic function is normal. The left ventricular ejection fraction is within the normal range. LVEF is 60-65%. Severe diastolic dysfunction is present (restrictive filling). Right Ventricle Right ventricle is mildly dilated. The right ventricular systolic function is normal. Atria Left atrium is mildly dilated. Right atrium is mildly dilated. [facility] [address] [place] [address] 2 D/M-MODE ECHOCARDIOGRAM Name: KATHERINE MATHEWS Room #: [address] [place] [address] IN .R.#: [id number] Admission: 05/06/19 Attend Phys: Sekou Valdovinos MD Discharge: Date of : 54 Report #: [id number] Aortic Valve The aortic valve is normal in structure. Moderate aortic regurgitation. There is no aortic valvular stenosis. Mitral Valve Mild mitral annular calcification. Mild to moderate mitral regurgitation. No evidence of mitral valve stenosis. Tricuspid Valve The tricuspid valve is normal in structure. Mild to moderate tricuspid regurgitation. PAP is estimated at 52 mmHg. Pulmonic Valve The pulmonary valve is normal in structure. Mild pulmonic regurgitation. Great Vessels The aortic root is normal in size. IVC is normal in size and collapses >50% with inspiration. Pericardium There is no pericardial effusion. <Conclusion> The left ventricle is normal size. LVEF is 60-65%. Right ventricle is mildly dilated. Left atrium is mildly dilated. Right atrium is mildly dilated. The aortic valve is normal in structure. Moderate aortic regurgitation. Mild mitral annular calcification. Mild to moderate mitral regurgitation. The tricuspid valve is normal in structure. Mild to moderate tricuspid regurgitation. PAP is estimated at 52 mmHg. The pulmonary valve is normal in structure. Mild pulmonic regurgitation. There is no pericardial effusion. <ELECTRONICALLY SIGNED> By: Nelson Reeder MD 05/06/19 1220 1220 1220 Nelson Reeder MD /INF
--- NOTE | 2019-05-06 15:46 | EKG ---
[facility] [place] [address] [place] [address] ELECTROCARDIOGRAM REPORT Name: KATHERINE MATHEWS Room #: 213-P ADM IN M.R.#: [id number] Admission: 05/06/19 Attend Phys: Sekou Valdovinos MD Discharge: Date of : 54 Report #: [id number] THIS REPORT FOR: cc: Abigail Wade MD, Emily G. 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 : 1950 Requested By: Colby Ng Order Number: [id number] MD: Kole Bolden Measurements Intervals [place] Rate: 69 P: 83 [place]: 185 QRS: 38 QRSD: 111 T: 162 QT: 469 QTc: 503 Interpretive Statements Sinus rhythm Repol abnrm suggests ischemia, anterolateral Prolonged QT interval Compared to ECG 03/08/2019 10:06:41 Sinus rhythm has replaced atrial fibrillation Electronically Signed On 05-06-2019 15:44:49 CDT by Kole Bolden [email or web address] <ELECTRONICALLY SIGNED> By: Kole Bolden MD, [facility] 05/06/19 1544 0623 0623 Kole Bolden MD, FAC /EPI
[2019-05-07 04:43] VITALS: BP 124/51
[2019-05-07 07:25] VITALS: BP 105/81
--- NOTE | 2019-05-07 08:12 | NUR ---
ASSESSMENT: CM REVIEWED CHART AND MET WITH PATIENT AT THE BEDSIDE. PT IS ALERT AND ORIENTED X4. PT REPORTS SHE LIVES IN A HOUSE AND IS FULLY INDEPENDENT. PT WAS ADMITTED WITH CHF/CKD AND SOB. PT REPORTS THAT SHE USES A CPAP AT HOME. PT ALSO STATES SHE HAS A BUILT IN [place] IN HER SHOWER. PT REPORTS YEARS AGO SHE HAD [facility] BUT DOES NOT HAVE IT AT THIS TIME. CM DISCUSSED ROLE. PT STATES SHE HAS NEVER BEEN TO A SNF. PT REPORTS BEING FULLY INDEPENDENT AND DOES NOT ANTICIPATE HAVING ANY NEEDS AT DISCHARGE. CM WILL CONTINUE TO FOLLOW TO ASSIST NEEDED.
[2019-05-07 08:32] LABS: HEMATOCRIT 24.7 % (37.0-47.0); HEMOGLOBIN 7.8 gm/dL (12.0-15.0); MCH 25.7 pg (26.0-34.0); MCHC 31.7 g/dL (28.0-37.0); MCV 81.2 fL (80.0-100.0); RBC 3.05 mil/uL (4.20-5.00); RDW 18.4 % (10.5-14.5); WBC 7.8 thou/uL (4.0-11.0)
[2019-05-07 08:37] LABS: CALCIUM 8.8 mg/dL (8.5-10.1); CREATININE 2.6 mg/dL (0.6-1.0)
[2019-05-07 11:38] VITALS: BP 120/52
[2019-05-07 16:17] VITALS: BP 138/64
--- NOTE | 2019-05-07 16:35 | NUR ---
Assumed pt care this am, VS stable, pt wanted her home meds resumed, informed the MD. Potassioum is low, replaced with oral medication. On 2500 ml fluids restrictions for 24 hours. VS stable, POC followed, no signs or verbalizations of distress noted. Pt is up ad morgan in the room, aware that stool sample is needed. Uses cpap at night, personal cpap at the bedside.
[2019-05-07 19:45] VITALS: BP 134/65
[2019-05-08] VITALS (7 sets, daily range): BP systolic 124–151; BP diastolic 46–57
[2019-05-08 06:25] LABS: ALBUMIN 2.6 g/dL (3.4-5.0); CALCIUM 8.7 mg/dL (8.5-10.1); CREATININE 2.5 mg/dL (0.6-1.0); PHOSPHORUS 3.9 mg/dL (2.5-4.9); POTASSIUM 3.7 mmol/L (3.5-5.1)
--- NOTE | 2019-05-08 08:38 | NUR ---
ASSESSMENTS CHARTED, MEDS GIVEN CHARTED. ALERT AND ORIENTED, SINUS RHYTHM IN AM, SINUS ED DURING NIGHT. LUNGS CLEAR OVER DIMINISHED. WORE CPAP DURING NIGHT. ACHS ON LOW SSI. 2000 ML FLUID RESTRICTION EDUCATION GIVEN TO REINFORCE COMPLIANCE OF FLUID RESTRICTIONS. UP AT FROY DURING SHIFT. OCCULT STOOL SAMPLE TURNED IN, PROVED POSSITIVE FOR BLOOD. PLAN OF CARE IS TO CONTINUE DIURESING AND CONTROLING FLUID MANAGEMENT.
--- NOTE | 2019-05-08 13:36 | NUR ---
ON-GOING ASSESSMENT: PT IS TO HAVE EGD IN AM. CM WILL CONTINUE TO FOLLOW TO ASSIST NEEDED.
--- NOTE | 2019-05-08 16:46 | NUR ---
PT CARE ASSUMED APPROXIMATELY 0700. PT ASSESSMENTS CHARTED. PT MEDICATION CHARTED. PT IS NPO AFTER 0000. EGD IN AM. PT DENIES PAIN. VSS.
[2019-05-08 20:20] LABS: % SATURATION 14 % (20-39); IRON 37 ug/dL (50-170); TIBC 268 ug/dL (250-450)
--- NOTE | 2019-05-09 03:24 | NUR ---
ASSESSMENT DOCUMENTED.PT BEEN RESTING IN NO ACUTE DISTRESS.A/OX4.VSS.NO REPORTED CASES OF BLACK TARRY STOOLS THIS SHIFT OR ACTIVE BLEEDING.NPO AFTER MIDNOC FOR EGD TODAY.SINUS ED ON MONITOR.DENIES PAIN.RA.CPAP WHILE SLEEPING NO CONCERNS VOICED AT THIS TIME.WILL CONT TO MONITOR PER POC.
[2019-05-09 04:42] VITALS: BP 128/52
[2019-05-09 05:32] LABS: HEMATOCRIT 25.3 % (37.0-47.0); HEMOGLOBIN 8.1 gm/dL (12.0-15.0); MCH 25.9 pg (26.0-34.0); MCHC 32.1 g/dL (28.0-37.0); MCV 80.8 fL (80.0-100.0); RBC 3.13 mil/uL (4.20-5.00); RDW 18.4 % (10.5-14.5); WBC 9.4 thou/uL (4.0-11.0)
[2019-05-09 05:40] LABS: ALBUMIN 2.5 g/dL (3.4-5.0); CALCIUM 8.6 mg/dL (8.5-10.1); CREATININE 2.2 mg/dL (0.6-1.0); MAGNESIUM 1.8 mg/dL (1.8-2.4)
[2019-05-09 05:46] LABS: POTASSIUM 2.9 mmol/L (3.5-5.1)
[2019-05-09 07:00] VITALS: BP 124/49
[2019-05-09 11:00] VITALS: BP 136/44
--- NOTE | 2019-05-09 11:52 | NUR ---
ON-GOING ASSESSMENT: PT IS HAVING HER EGD DONE TODAY. PT WILL LIKELY HAVE NO NEEDS AT THE TIME OF DISCHARGE AND RETURN TO HER HOME. CM WILL CONTINUE TO FOLLOW.
[2019-05-09 16:30] VITALS: BP 140/65
--- NOTE | 2019-05-09 17:04 | NUR ---
ASSUMED CARE 0700. ALERT X 4 FROM HOME, DENIES PAIN, DENIES SOB. POTASSIUM TREATED WITH IV POTASSIUM. LAST LAB K+3.2. NOTIFIED PHYSICAN WAITING RESPONSE. PT UP AB FROY TO TOILET. BM TODAY. EGD COMPLETED WITH NO INTERVENTIONS. PT TO FOLLOW UP WITH GI OUTPATIENT FOR VIDEO CAPSULE STUDY. NEW ORDERS FOR IRON IVPB. DIET ADVANCE TO HEART HEALTHY. FLUID RESTRICTION OF 1999. PT COMPLIANT. SINUS ED THIS MORNING SINUS RHYTHM THIS AFTERNOON. VSS, CALL LIGHT IN REACH. CALLS FOR ASSISTANCE.
[2019-05-09 20:06] VITALS: BP 138/51
--- NOTE | 2019-05-09 22:12 | P ---
[facility] [place] [address] [address] [place] [address] PROCEDURE REPORT Name: KATHERINE MATHEWS Room #: 213-P ADM IN M.R.#: [id number] Admission: 05/06/19 Attend Phys: Sekou Valdovinos MD Discharge: Date of : 54 Report #: [id number] THIS REPORT FOR: cc: Abigail Wade MD,Joanna Ventura MD, DO ~ CC: Sera Valdovinos MD DATE OF SERVICE: 05/09/2019 DIAGNOSTIC ESOPHAGOGASTRODUODENOSCOPY PATIENT OF: She is a patient of Dr. Abigail Wade and Dr. Sekou Valdovinos and Dr. Freeman and Dr. Mckeon. Informed consent for this procedure was obtained prior to the administration of any medication. The risks of the procedure, which include bleeding, perforation, infection, complications of sedation and the possibility I could miss something as well as others that are not listed here have been explained to the patient. She has indicated her consent by signing. Anesthesia kindly provided deep sedation for this procedure. DESCRIPTION OF PROCEDURE: With the patient in the left lateral decubitus position, the Olympus upper videoscope was introduced through the upper esophageal sphincter and advanced under direct visualization to the third portion of the duodenum. Findings are noted on withdrawal of the scope. There was no blood at all in the upper GI tract and no source of blood loss was observed. The mucosal lining of the entire visualized duodenum appeared normal. Pylorus, normal mucosa. Antrum, normal mucosa. Body, normal mucosa. Cardia and fundus, normal mucosa. Retroflex view did not reveal any abnormalities. The scope was withdrawn into the esophagus. The Z-line is appropriately located at the top of the gastric folds and appears normal. The esophageal mucosa appears normal throughout its entirety. The scope was withdrawn. The patient went to the recovery area in stable condition. She tolerated the procedure well. IMPRESSION: Normal esophagogastroduodenoscopy to the third portion of the duodenum. Source of melena and anemia, unclear. [facility] [address] [place] [address] PROCEDURE REPORT Name: KATHERINE MATHEWS Room #: 213-P ADM IN M.R.#: [id number] Admission: 05/06/19 Attend Phys: Sekou Valdovinos MD Discharge: Date of : 54 Report #: [id number] RECOMMENDATIONS: For her to have an outpatient M2 small bowel video capsule study done. We need to monitor her H and H as an outpatient as well as her iron levels and load her with iron if she becomes iron deficient. Thank you very much once again for allowing me to participate in her care, Dr. Wade and Dr. Freeman. <ELECTRONICALLY SIGNED> By: Joanna Goldberg DO 05/09/19 2212 [id number] 1305 Joanna Goldberg DO /nt
--- NOTE | 2019-05-10 03:24 | NUR ---
ASSESSMENT DOCUMENTED.PT BEEN RESTING IN NO ACUTE DISTREE.VSS.SR/SB ON THE MONITOR.DENIES ANY NEEDS.POC IS TO CONT WITH IRON INFUSION WITH VIDEO CAPSULE PERFORMED OUTPT.WILL CONT TO MONITOR PER POC.
[2019-05-10 04:59] VITALS: BP 125/52
[2019-05-10 08:49] VITALS: BP 141/63
[2019-05-10 09:22] LABS: HEMATOCRIT 27.6 % (37.0-47.0); MCH 26.2 pg (26.0-34.0); MCHC 32.4 g/dL (28.0-37.0); RBC 3.41 mil/uL (4.20-5.00); RDW 18.8 % (10.5-14.5); WBC 9.3 thou/uL (4.0-11.0)
[2019-05-10 09:35] LABS: CALCIUM 8.9 mg/dL (8.5-10.1); CREATININE 2.1 mg/dL (0.6-1.0); MAGNESIUM 1.9 mg/dL (1.8-2.4)
--- NOTE | 2019-05-10 12:12 | NUR ---
Nutrition: Pt admitted with SOA, dehydration, CKD, anemia and seen due to high BMI status-46.1 indicating extreme class 3 obesity. PMH: CKD stage 3, CHF, NIDDM, HTN. Pt reports a 52# intentional loss per wt hx but has increased due to fluid. Diuresing on torsemide. Intake is good 100% of meals on heart healthy diet. Suggest add Carb controlled restriction. BG 112-176. S/P EGD -source of anemia/melena unclear. Plan for outpatient M2 capsule study. On ferrous sulfate and IV Fe+ infusions. Pt denies need for diet instruction. REC add carb controlled to diet order. Low nutrition risk.
[2019-05-10 12:15] VITALS: BP 142/55
[2019-05-10] MEDS ORDERED: KLOR-CON M2020 MEQ PO (14:19)
[2019-05-10] MEDS ORDERED: TORSEMIDE20 MG PO (14:22)
[2019-05-10 16:00] VITALS: BP 150/60
[2019-05-10 19:26] VITALS: BP 138/58
--- NOTE | 2019-05-10 19:29 | NUR ---
ASSUMED CARE 0700. ALERT X2, VSS, DENIES PAIN, DENIES SOB, UP AB FROY TO BATHROOM. PROGRESSING TOWARDS GOALS. LIKELY DC TOMORROW.
[2019-05-11 04:17] VITALS: BP 132/56
--- NOTE | 2019-05-11 05:08 | NUR ---
ASSUMED PT CARE AT 1900, PT IS ALERT AND ORIENTEDX4, PLEASANT, MAKES NEEDS KNOWN, VS STABLE, BS STABLE, SR/SB ON THE MONITOR, STABLE ON ROOM AIR DURING THE DAY AND CPAP AT NIGHT, NO C/O PAIN OR SOA, LAYING DOWN IN BED WITH NO DISTRESS AT THIS TIME, WILL CONTINUE TO MONITOR
[2019-05-11 05:31] LABS: HEMATOCRIT 25.7 % (37.0-47.0); HEMOGLOBIN 8.2 gm/dL (12.0-15.0); MCH 26.2 pg (26.0-34.0); MCHC 31.9 g/dL (28.0-37.0); MCV 82.2 fL (80.0-100.0); RBC 3.13 mil/uL (4.20-5.00); RDW 18.9 % (10.5-14.5); WBC 9.8 thou/uL (4.0-11.0)
[2019-05-11 05:38] LABS: CALCIUM 8.9 mg/dL (8.5-10.1); CREATININE 2.1 mg/dL (0.6-1.0); MAGNESIUM 1.9 mg/dL (1.8-2.4)
[2019-05-11 07:40] VITALS: BP 144/61
--- NOTE | 2019-05-11 08:29 | NUR ---
ASSUMED CARE OF PT AT SHIFT CHANGE, IN GOOD SPIRITS, POSSIBLE D/C GAVE EDUCATION RE: THIS PROCESS. A&0X4, SEE SEPARATE INTERVENTIONS FOR ASSESSMENTS. AMB STEADY, GOOD APPETITE, FLUID RESTRICTION. WILL CONTINUE TO MONITOR
[2019-05-11 11:30] VITALS: BP 127/52
[2019-05-11 13:41] LABS: HEMATOCRIT 29.1 % (37.0-47.0); HEMOGLOBIN 9.4 gm/dL (12.0-15.0); MCH 26.4 pg (26.0-34.0); MCHC 32.2 g/dL (28.0-37.0); MCV 81.9 fL (80.0-100.0); RBC 3.56 mil/uL (4.20-5.00); RDW 18.9 % (10.5-14.5); WBC 11.2 thou/uL (4.0-11.0)
[2019-05-11 14:42] VITALS: BP 127/52
[2019-05-11 14:43] VITALS: BP 127/52
== END 2019-05-11 17:00 | disposition home or self-care (01) | DRG 291 ==
LOC: ER 06:14 → EROBS 08:30 → 2N 08:30
PROVIDERS: Emergency Medicine; Hospitalist; Internal Medicine; Internal Medicine Gastroenterology; Nurse Practitioner; ADMIT Internal Medicine
PROC: 5A09557 Assistance with Respiratory Ventilation, Greater than 96 Consecutive Hours, Continuous Positive Airway Pressure (ICD-10-PCS; principal; 2019-05-06)
PROC: 0DJ08ZZ Inspection of Upper Intestinal Tract, Via Natural or Artificial Opening Endoscopic (ICD-10-PCS; 2019-05-09)
DX: I13.0 Hypertensive heart and chronic kidney disease with heart failure and stage 1 through stage 4 chronic kidney disease, or unspecified chronic kidney disease (principal); I50.33 Acute on chronic diastolic (congestive) heart failure; N17.0 Acute kidney failure with tubular necrosis; I48.20 Chronic atrial fibrillation, unspecified; D62 Acute posthemorrhagic anemia; Z68.41 Body mass index [BMI] 40.0-44.9, adult; N18.3 Chronic kidney disease, stage 3 (moderate); E78.5 Hyperlipidemia, unspecified; M19.90 Unspecified osteoarthritis, unspecified site; E11.22 Type 2 diabetes mellitus with diabetic chronic kidney disease; E03.9 Hypothyroidism, unspecified; F43.10 Post-traumatic stress disorder, unspecified; F32.9 Major depressive disorder, single episode, unspecified; M10.9 Gout, unspecified; F41.8 Other specified anxiety disorders; I48.0 Paroxysmal atrial fibrillation; E87.6 Hypokalemia; E83.42 Hypomagnesemia; E78.00 Pure hypercholesterolemia, unspecified; D64.9 Anemia, unspecified; E66.01 Morbid (severe) obesity due to excess calories; E11.42 Type 2 diabetes mellitus with diabetic polyneuropathy; K57.90 Diverticulosis of intestine, part unspecified, without perforation or abscess without bleeding; Z79.01 Long term (current) use of anticoagulants; Z88.2 Allergy status to sulfonamides; Z79.899 Other long term (current) drug therapy; Z79.84 Long term (current) use of oral hypoglycemic drugs; Z90.710 Acquired absence of both cervix and uterus; Z90.722 Acquired absence of ovaries, bilateral; Z90.49 Acquired absence of other specified parts of digestive tract; Z86.14 Personal history of Methicillin resistant Staphylococcus aureus infection; Z83.3 Family history of diabetes mellitus; Z82.49 Family history of ischemic heart disease and other diseases of the circulatory system; Z95.1 Presence of aortocoronary bypass graft; Z86.010 Personal history of colon polyps; Z87.11 Personal history of peptic ulcer disease
CPT/HCPCS: 10081; 62110; 62900; 70005

== ENCOUNTER → 2019-05-21 | Outpatient (CLI) | payer OTHER ==
[~2019-05-21] MED LIST changes: +KLOR-CON M2020 MEQ PO; +TORSEMIDE20 MG PO
== END ==
LOC: SJCVC 10:24
DX: I44.0 Atrioventricular block, first degree (principal); R94.31 Abnormal electrocardiogram [ECG] [EKG]; I48.0 Paroxysmal atrial fibrillation; I11.0 Hypertensive heart disease with heart failure; I50.32 Chronic diastolic (congestive) heart failure; G47.33 Obstructive sleep apnea (adult) (pediatric); Z90.49 Acquired absence of other specified parts of digestive tract; Z90.710 Acquired absence of both cervix and uterus; Z79.899 Other long term (current) drug therapy

== ENCOUNTER 2019-06-26 12:43 | Inpatient (IN) | payer OTHER ==
[~2019-06-26] VITALS: Ht 175.3 cm; Wt 132.4 kg
--- NOTE | ~2019-06-26 | HC ---
[facility] [place] [address] [address] [place] [address] CONSULTATION Name: KATHERINE MATHEWS Room #: 205-P ADM IN M.R.#: [id number] Admission: 06/26/19 Attend Phys: Sekou Valdovinos MD Discharge: Date of : 54 Report #: [id number] THIS REPORT FOR: cc: [facility] - Family physician unknown FAM - Family physician unknown Carmelo Retana MD ~ CC: [facility] unknown Sekou Valdovinos DATE OF SERVICE: 07/01/2019 HISTORY OF PRESENT ILLNESS: The patient is a 68-year-old white female who was admitted with increased lower extremity weakness, pain, and inability to ambulate or transfer. She was noted to have severe rhabdomyolysis with a CPK greater than 20,000. She is being monitored with significant acute renal insufficiency with a creatinine currently at 7.6. She is noted to have shock liver, severe hyponatremia. She has severe protein-calorie malnutrition even in light of morbid obesity. Bilateral lower extremity arterial insufficiency with a right lower extremity ischemia worse thought either due to tiny emboli or a vasculitis per Interventional Radiology. She did undergo an aortogram and bilateral lower extremity runoff angiogram on 06/28/2019. The patient has considerable medical complexity and has significant generalized debilitation. We are seeing her in rehabilitation medicine consultation. PAST MEDICAL HISTORY: Prior medical history includes history of acute on chronic diastolic heart failure for which she was hospitalized in 05/10/2019. She also had acute blood loss anemia of unclear etiology with GI workup, essentially negative. History of atrial fibrillation, status post ablation. History of degenerative arthritis, non-insulin dependent diabetes mellitus, PTSD, and gout. She indicates neuropathy, apparently from a slip and fall per her history, history of hypertension and hyperlipidemia. MEDICATIONS: Please see the full medication listing. ALLERGIES: SULFA. SOCIAL HISTORY: Lives with 2 granddaughter's in a house. There are 14 steps to get up to the main living area and there is no elevator. One of the granddaughter's works and the other one is there. The patient did not utilize gait aids premorbidly. REVIEW OF SYSTEMS: No current complaints of chest pain, shortness of breath or abdominal discomfort. Complains of overall weakness. She is motivated to try to improve her strength and endurance. PHYSICAL EXAMINATION: [facility] [address] [place] [address] CONSULTATION Name: KATHERINE MATHEWS Room #: [facility]- ADM IN M.R.#: [id number] Admission: 06/26/19 Attend Phys: Sekou Valdovinos MD Discharge: Date of : 54 Report #: [id number] GENERAL: She is a pleasant 68-year-old white female in no obvious distress. Please see the vital signs. Height 5 feet 9 and weight is 267 pounds. Facies appeared symmetric. She is a good historian. NEUROMUSCULOSKELETAL: Functional range of motion of both upper extremities. Strength is grade 4-/5. In the lower extremities, there is no focal calf swelling. Strength is probably a grade 3 to 3+/5. She did have some difficulty trying to lift both legs up off the bed with hip flexion, but did better with bilateral knee extension, which is probably a grade 3+. She is max assist coming to stand and has actually taken 2 steps max assist without an assistive device. She does have some decreased distal sensation in bilateral lower extremities consistent with her noted premorbid peripheral neuropathy. ASSESSMENT: A 68-year-old white female with the following problem list: 1. Medical complex with generalized debilitation. 2. Severe acute rhabdomyolysis. 3. Severe hyponatremia with sodium today 121. 4. Acute renal insufficiency superimposed on chronic kidney disease. Creatinine 7.6. 5. CPK was originally greater than 20,000, now 3109. 6. Bilateral lower extremity arterial insufficiency with right foot ischemia likely distal emboli versus vasculitis. 7. History of acute on chronic diastolic heart failure. 8. History of morbid obesity. 9. Peripheral neuropathy. 10. Elevated liver function tests with Gastroenterology involved. 11. Acute hypoxemic respiratory failure with pulmonary Medicine involved. PLAN: Insurance will be checked regarding an acute in-hospital inpatient rehabilitation stay. The patient has multiple medical consultants and there could be good continuity of care with continuation of this medical care and multiple loan consultant involvement while the patient is on the acute in-hospital inpatient rehabilitation interiano. Insurance will be checked and we will be glad to follow along with you regarding her rehab therapy needs. By: [id number] Carmelo Retana MD /nt
[2019-06-26 13:35] LABS: ABSOLUTE NEUTROPHILS 13.5 thou/uL (1.4-8.2); BASOPHILS 0.4 % (0.0-2.0); EOSINOPHILS 0.1 % (0.0-3.0); HEMATOCRIT 36.5 % (37.0-47.0); HEMOGLOBIN 11.8 gm/dL (12.0-15.0); LYMPHOCYTES 7.7 % (24.0-44.0); MCH 26.6 pg (26.0-34.0); MCHC 32.3 g/dL (28.0-37.0); MCV 82.3 fL (80.0-100.0); MONOCYTES 3.4 % (1.0-8.0); PLATELET COUNT 453 thou/uL (150-400); POLYS 88.4 % (36.0-66.0); RBC 4.43 mil/uL (4.20-5.00); RDW 18.6 % (10.5-14.5); WBC 15.3 thou/uL (4.0-11.0)
[2019-06-26 13:44] LABS: ANION GAP 13 mmol/L (7-16); BUN 79 mg/dL (7-18); CALCIUM 8.9 mg/dL (8.5-10.1); CHLORIDE 88 mmol/L (98-107); CO2 25 mmol/L (21-32); CREATININE 5.4 mg/dL (0.6-1.0); GLUCOSE 175 mg/dL (74-106); POTASSIUM 4.2 mmol/L (3.5-5.1); SODIUM 126 mmol/L (136-145)
[2019-06-26 13:48] LABS: APTT 33.2 Seconds (24.5-32.8); INR 1.2; PROTIME 11.9 Seconds (9.3-11.4)
[2019-06-26 13:54] LABS: ALBUMIN 2.7 g/dL (3.4-5.0); SGOT 903 U/L (15-37); SGPT 377 U/L (30-65); TOTAL BILIRUBIN 0.5 mg/dL (<0.1-1.0); TOTAL PROTEIN 6.6 g/dL (6.4-8.2); TROPONIN-I <0.06 ng/mL (<0.06)
[2019-06-26 15:21] LABS: URINE BILIRUBIN NEGATIVE (Negative); URINE BLOOD 3+ (Negative); URINE CLARITY CLOUDY; URINE COLOR YELLOW; URINE GLUCOSE-RANDOM* NEGATIVE (Negative); URINE KETONES NEGATIVE (Negative); URINE NITRITE-REFLEX NEGATIVE (Negative); URINE PROTEIN (DIPSTICK) 2+ (Negative); URINE SPECIFIC GRAVITY 1.015 (1.005-1.035); URINE UROBILINOGEN 0.2 E.U./dl (0.2-1.0)
[2019-06-26 15:26] LABS: URINE LEUKOCYTES-REFLEX 1+ (Negative)
[2019-06-26 15:40] LABS: SQUAMOUS 0-3 Few /LPF (0-3)
[2019-06-26 15:41] LABS: BACTERIA-REFLEX 1-9 Few /HPF (None Seen); CASTS None Seen /LPF (None Seen); CRYSTALS None Seen /LPF (None Seen); URINE RBC 0-2 Rare /HPF (0-2); URINE WBC-REFLEX 0-5 Rare /HPF (0-5)
[2019-06-26 16:16] VITALS: BP 150/94
[2019-06-26 16:30] VITALS: BP 127/69
[2019-06-26 17:03] VITALS: BP 125/62
[2019-06-26 20:02] VITALS: BP 123/64
[2019-06-26 23:55] VITALS: BP 130/67
[2019-06-27] VITALS (7 sets, daily range): BP systolic 105–135; BP diastolic 54–68
[2019-06-27 05:43] LABS: ABSOLUTE NEUTROPHILS 15.3 thou/uL (1.4-8.2); BASOPHILS 0.2 % (0.0-2.0); HEMATOCRIT 37.2 % (37.0-47.0); HEMOGLOBIN 11.9 gm/dL (12.0-15.0); LYMPHOCYTES 15.3 % (24.0-44.0); MCH 26.6 pg (26.0-34.0); MCHC 31.9 g/dL (28.0-37.0); MCV 83.2 fL (80.0-100.0); MONOCYTES 4.3 % (1.0-8.0); PLATELET COUNT 481 thou/uL (150-400); POLYS 80.2 % (36.0-66.0); RBC 4.47 mil/uL (4.20-5.00); WBC 19.1 thou/uL (4.0-11.0)
[2019-06-27 05:56] LABS: ALBUMIN 2.7 g/dL (3.4-5.0); CALCIUM 9.1 mg/dL (8.5-10.1); MAGNESIUM 2.2 mg/dL (1.8-2.4); POTASSIUM 4.5 mmol/L (3.5-5.1); TOTAL BILIRUBIN 0.6 mg/dL (<0.1-1.0); TOTAL PROTEIN 5.8 g/dL (6.4-8.2)
--- NOTE | 2019-06-27 06:49 | NUR ---
SLEPT PART OF SHIFT WITH CPAP FROM HOSPITAL. STATES ITS TO NOISY AND WANTS HER DAUGHTER TO BRING HER OWN. WORKING ON PLAN OF CARE FOR NOC. CONTINUE TO ASSES. NO COMPLAINTS OF PAIN THIS AM.
--- NOTE | 2019-06-27 07:56 | EKG ---
[facility] [place] [address] [address] [place] [address] ELECTROCARDIOGRAM REPORT Name: KATHERINE MATHEWS Room #: 205-P ADM IN M.R.#: [id number] Admission: 06/26/19 Attend Phys: Sekou Valdovinos MD Discharge: Date of : 54 Report #: [id number] THIS REPORT FOR: cc: FAM - Family physician unknown FAM - Family physician unknown Kole Bolden MD [facility] THIS REPORT FOR: //name// [facility] ED Test Date: 2019-06-26 Test Time: 13:49:16 Pat Name: KATHERINE MATHEWS Department: Room: [facility] Gender: F Associate Software Developer: : 1950 Requested By: Severo Cortes Order Number: [id number] MD: Kole Bolden Measurements Intervals Freeman Rate: 97 P: -31 VA: 145 QRS: 33 QRSD: 108 T: 152 QT: 423 QTc: 538 Interpretive Statements Atrial flutter Repol abnrm suggests ischemia, anterolateral Minimal ST elevation, inferior leads Prolonged QT interval Compared to ECG 05/06/2019 06:23:26 Atrial flutter has replaced sinus rhythm Electronically Signed On 06-27-2019 7:55:10 CDT by Kole Bolden [email or web address] <ELECTRONICALLY SIGNED> By: Kole Bolden MD, FAC 06/27/19 0755 1349 1349 Kole Bolden MD, FACC /EPI
--- NOTE | 2019-06-27 11:03 | NUR ---
08:00 ASSESSMENT COMPLETED. PT. C/O LEFT LEG WEAKNESS AND BILATERAL WEAKNESS IN GENERAL-"NUMB AND TINGLY". INSTRUCTED NOT TO GET OUT OF BED UNLESS STAFF IS NOTIIFIED. NO CHEST PAIN, NO SHORTNESS OF BREATH EITHER. LEFT TOES ARE DUSKYIN COLOR AND COOL TO TOUCH ALL 5 TOES, COOL UP TO ANKLE AREA. WILL OBTAIN NEW IV SITE THIS AM FOR IV FLUIDS. HEPARIN IS INFUSING TO RIGHT ANNTECUBETAL SITE, NO SIGNS OF INFILTRATION. WILL CONTINUE TO MONITOR CLOSELY FOR ANY NEURO CHANGES OR SOB, NONE ONBSERVED AT PRESENT.
[2019-06-27 13:36] LABS: % SATURATION 18 % (20-39); IRON 45 ug/dL (50-170); TIBC 249 ug/dL (250-450)
[2019-06-27 17:51] LABS: URINE CREATININE-RANDOM* 55.1 mg/dL
[2019-06-27 18:46] LABS: SMEAR FOR EOSINOPHILS No Eosinophils Seen
[2019-06-28 04:30] VITALS: BP 118/59
[2019-06-28 07:05] VITALS: BP 118/51
--- NOTE | 2019-06-28 07:33 | NUR ---
[facility] 1900. PT/VITALS STABLE. DENIES ANY PAIN. MODERATELY TOLERATES ACTIVITY. BILATERAL FEET COLD WITH DOPPLER PULSES NOTED LEFT TIBIA AND PEDAL AREAS. RIGHT TIBIA PULSE DOPPLER PRESENT BUT PEDAL IS ABSENT. TOES APPEAR BLUE. PT ON HEPARIN TO HELP WITH EASY CIRCULATION. BY 0600AM, LEFT FOOT IS WARMER AND PULSES ARE PALPABLE. RIGHT FOOT STILL COLD AND DUSKY. ASSESMENT CHARTED. PROGRESSING WELL WITH POC. PLAN IS TO CONTINUE WITH HEPARIN DRIP AND TO CONTINUE TO MONITOR CIRCULATION. WILL CONTINUE TO MONITOR AND FOLLOW WITH POC
[2019-06-28 08:19] LABS: HEMATOCRIT 30.9 % (37.0-47.0); HEMOGLOBIN 10.2 gm/dL (12.0-15.0); MCH 27.1 pg (26.0-34.0); MCHC 32.8 g/dL (28.0-37.0); MCV 82.5 fL (80.0-100.0); RBC 3.75 mil/uL (4.20-5.00); RDW 18.7 % (10.5-14.5); WBC 13.8 thou/uL (4.0-11.0)
[2019-06-28 08:21] LABS: PLATELET COUNT 378 thou/uL (150-400)
[2019-06-28 08:34] LABS: ALBUMIN 2.1 g/dL (3.4-5.0); CALCIUM 8.1 mg/dL (8.5-10.1); CREATININE 6.2 mg/dL (0.6-1.0); MAGNESIUM 1.9 mg/dL (1.8-2.4); POTASSIUM 3.8 mmol/L (3.5-5.1); TOTAL BILIRUBIN 0.3 mg/dL (<0.1-1.0); TOTAL PROTEIN 5.5 g/dL (6.4-8.2)
--- NOTE | 2019-06-28 09:01 | NUR ---
REC REPORT AT SHIFT CHANGE; ASSUMED CARE, PT STATES SHE SLEPT FROM 6PM UNTIL THIS A.M. AND WELL. REC TELEPHONE ORDERS FROM DR. KEITA TO ENTER ORDERS FOR HER UPCOMING PROCEDURE INCLUDING NPO YET PT HAD CONSUMED ABOUT 85% OF HER MEAL, LET DR. ROSA NURSE KNOW WHEN THEY CALLED TO SAY THEY WERE COMING FOR PT. [facility] NURSING DIRECTOR ENTERED ORDERS. PT IS A&0X4, NO NEEDS AT THIS TIME OTHER THAN SHE BEGGED TO FINISH HER BFAST. SEE SEPARATE INTERVENTIONS FOR ASSESSMENTS. WILL CONTINUE TO MONITOR UPON RETURN
[2019-06-28 10:25] LABS: ANISOCYTOSIS 2+
--- NOTE | 2019-06-28 10:58 | NUR ---
Chart reviewed and case discussed with the care team. Attempted to reach pt in her room ;however she has gone down to IR this morning for Arteriogram and temp dialysis cath. She was admitted with bilateral LE arterial insuff and renal failure. The pt is known to cm from previous admissions. 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 She is normally indep with gait, adl's and drives. She lives in a two story home with a flight of steps to enter. She can stay on the main level and her granddtrs live upstairs and are supportive. She has multiple health issues including CHF,DM, CKD and HTN. Her pcp is Dr Abigail Wade. PT/OT have been ordered and the pt may likely needs some level of rehab d/t her current condition. Will ask for 5N consult and follow along.
--- NOTE | 2019-06-28 11:41 | NUR ---
REC PT BACK FROM [employer] REPORTS OF HEMOSTASIS ACHIEVED AT 1044 PER REPORT, PT ARRIVES WITH SLIGHT MINISCULE FAINT SPOT OF BLOOD ON GAUZE, TEMP DIALYSIS CATHETER ON LEFT SIDE OF FACE/NECK, DRESSING C/D AND PARTIALLY COMING OFF. REINFORCED WITH ADDITIONAL CLEAR WINDOW AND TAPE. PT INSTRUCTED ON ALL RESTRICTIONS FOR LEFT LEG AND IS COMPLYING. SEE DATA FLOW SHEET FOR VITAL SIGNS. PT ASKED FOR CPAP MACHINE ABOUT 30 MIN THROUGH ASSESSMENT. NO DIET ORDER AT THIS TIME. IS HYDRATING. WILL CONTINUE TO MONITOR
[2019-06-28 12:08] VITALS: BP 113/54
[2019-06-28 12:08] LABS: IgA 207 mg/dL (87-352); IgG 789 mg/dL (586-1602); IgM 21 mg/dL (26-217)
[2019-06-28 13:08] LABS: CERULOPLASMIN 25.2 mg/dL (19.0-39.0)
--- NOTE | 2019-06-28 15:40 | HC ---
[facility] [place] [address] CONSULTATION Name: KATHERINE MATHEWS Room #: 205-P ADM IN M.R.#: [id number] Admission: 06/26/19 Attend Phys: Sekou Valdovinos MD Discharge: Date of : 54 Report #: [id number] THIS REPORT FOR: cc: [facility] - Family physician unknown [facility] - Family physician unknown Carlos Jones ~ CC: [facility] unknown Sekou Valdovinos Consultation from Dr. Valdovinos regarding vascular insufficiencies, bilateral lower extremities HISTORY OF PRESENT ILLNESS: The patient stated that prior to coming to the hospital, she woke up in the middle of the night with weakness, heaviness and leg pain and also abdominal and pelvic pain as well as weakness to her legs and difficulty in ability of walking. PAST MEDICAL HISTORY: The patient has a history of chronic kidney disease, diabetes type 2, hypertension, hyperlipidemia, hypothyroidism, depression, anxiety, AFib. PAST SURGICAL HISTORY: The patient has had a cholecystectomy. The patient has also had an open heart surgery secondary to ablation procedure for AFib, resulting in a disruption of the tissue of the heart, had to do a repair of this and then had to do a reoperation procedure following this for repair of aorta as well, all related to the ablation procedure. SOCIAL HISTORY: The patient is , has 2 children, does not smoke and reports never have, does not drink alcohol. FAMILY HISTORY: Mother is at age 70 secondary to leukemia. Father at age 78 secondary to coronary artery disease. ALLERGIES: SULFA. MEDICATIONS: As follows: 1. Iron 325 mg daily. 2. Eliquis 5 mg b.i.d. 3. Amiodarone 200 mg daily. 4. Crestor 40 mg by mouth at bedtime. 5. Imdur 30 mg by mouth at bedtime. 6. Nitroglycerin 0.4 mg sublingual p.r.n. chest pain. 7. Metoprolol succinate 25 mg b.i.d. 8. Cymbalta 60 mg b.i.d. 9. Xanax 0.5 mg, the patient to take one-half tablet by mouth daily. 10. BuSpar 15 mg t.i.d. 11. Ambien 10 mg by mouth at bedtime p.r.n. insomnia. [address] [address] CONSULTATION Name: KATHERINE MATHEWS Room #: [address] [place] [address] IN M.R.#: [id number] Admission: 06/26/19 Attend Phys: Sekou Valdovinos MD Discharge: Date of : 54 Report #: [id number] 12. Klor-Con 20 mEq daily. 13. Torsemide 20 mg b.i.d. 14. Metformin 1000 mg b.i.d. 15. Januvia 50 mg by mouth at bedtime. 16. Levothyroxine sodium 112 mcg daily. 17. Allopurinol 100 mg daily. REVIEW OF SYSTEMS: A 12-point review of systems completed. CONSTITUTIONAL: The patient does complain of some fatigue and difficulty sleeping. HEENT: Denies any headache, but does complain of some intermittent vertigo. Denies any hearing loss. RESPIRATORY: Does complain of some mild shortness of breath with some dyspnea on exertion. Denies orthopnea. Denies wheeze or cough. CARDIOVASCULAR: Denies chest pain, jaw pain. Does have some left arm pain. Denies any heart murmurs, but does have AFib. SKIN: Denies any rashes, psoriasis or eczema. ENDOCRINE: Does have cold feet. Denies night sweats and lack of concentration. GASTROINTESTINAL: Complains of some intermittent nausea, vomiting with constipation for the last couple of weeks. GENITOURINARY: Does complain of urinary frequency. Denies any hematuria or dysuria. NEUROLOGIC: Denies any seizures. She does have some numbness to her feet bilaterally. PSYCHOLOGIC: Denies any hallucination, but does confirm depression and anxiety. MUSCULOSKELETAL: Denies any joint pain, stiffness or swelling. IMMUNOLOGIC: Denies any lupus, rheumatoid arthritis or celiac disease. PHYSICAL EXAMINATION: VITAL SIGNS: The patient is 121 kilograms, blood pressure is 124/68, heart rate is 103 and shows AFib on monitor, respiratory rate 20, temperature 36.7. GENERAL: The patient is well-developed, well-nourished, obese, has normal speech. HEENT: Eyes are PERRLA. She is normocephalic. Gaze appearing conjugate in all positions. No evidence of nystagmus. CARDIOVASCULAR: Irregular rhythm, but S1, S2 is present. Negative thrills, no carotid bruits detected. LUNGS: Clear and equal on auscultation in all melissa. ABDOMEN: Soft, nondistended, slightly tender on palpation to the mid epigastric region. Bowel sounds are present in all 4 quads. SKIN: Shows to be cool and pale to the bilateral toes involving all 5 as well as mid forefoot, right greater than left. NEUROLOGIC: Cranial nerves 2-12 are intact. The patient is alert and oriented x 3. Has equal sensation in bilateral lower extremities to the mid forefoot. Unable to palpate any distal pulses. Does have positive popliteal pulses bilaterally, was able to ascertain Doppler signals to the left dorsalis pedis [facility] [address] [place] [address] CONSULTATION Name: KATHERINE MATHEWS Room #: 205- ADM IN M.R.#: [id number] Admission: 06/26/19 Attend Phys: Sekou Valdovinos MD Discharge: Date of : 54 Report #: [id number] positive and posterior tibial also positive Doppler signals. The right foot posterior tibial pulse Doppler signals present, was not able to get a Doppler signal to the right dorsalis pedis. LABORATORY VALUES: As follows: Sodium is 132, potassium 4.5, chloride is 93, CO2 is 22, BUN 84, creatinine is 6.0 with GFR of 7 and glucose is 125. White blood cell count is 19.1, hemoglobin 11.9, hematocrit 37.2, platelet of 481. The patient is IgG, IgA, and IgM pending. The patient is currently on a heparin drip. The patient has been seen already today by Dr. Simmons and Dr. Mckeon. Dr. Simmons's impression and tend to agree that this appears to be in the bilateral nature of it and affecting feet as well as kidneys for thromboembolectomy secondary to possible AFib. ASSESSMENT: Bilateral lower extremity arterial insufficiencies, possibly secondary to thromboemboli, grzor-[id number] kidney disease as well as urinary tract infection. PLAN: As stated, do agree with Dr. Simmons's plan for a heparin drip. We will follow Dr. Mckeon's opinion as to the need of dialysis or not. If the patient does, however, get to a position where we were able to do any vascular studies, we would get CTA with runoff and/or angiogram at that time. At this point, it does not have any surgical indications and we will also continue to follow and Dr. Ibarra will see the patient later today. <ELECTRONICALLY SIGNED> By: ALISIA Sepulveda 06/28/19 1540 [id number] ALISIA Sepulveda /nt
[2019-06-28 17:05] VITALS: BP 119/43
[2019-06-28 18:08] LABS: HAV IgM AB (ANTI-HAV IgM) Negative (Negative); HEPATITIS B SURFACE AG Negative (Negative); HEPATITIS C VIRUS AB <0.1 (0.0-0.9)
[2019-06-29 02:07] LABS: COMPLEMENT-C3 103 mg/dL (82-167); COMPLEMENT-C4 28 mg/dL (14-44)
--- NOTE | 2019-06-29 02:12 | NUR ---
0200 ASSUMED CARE OF PT AFTER REPORT FROM RN
[2019-06-29 04:45] VITALS: BP 132/49
[2019-06-29 05:11] LABS: ALBUMIN 1.9 g/dL (3.4-5.0); CALCIUM 8.2 mg/dL (8.5-10.1); CREATININE 6.7 mg/dL (0.6-1.0); PHOSPHORUS 6.3 mg/dL (2.5-4.9); POTASSIUM 4.1 mmol/L (3.5-5.1)
--- NOTE | 2019-06-29 07:44 | NUR ---
ASSUMED CARE OF PT AT SHIFT CHANGE, A&OX4, NO NEEDS AT THIS TIME. SEE SEPARATE INTERVENTIONS FOR ASSESSMENTS. SENIOR RESIDENT CARE DIRECTOR HERE WAITING FOR HIS PHYSICIAN AND ORDERS FOR DIALYSIS W/TEMP PORT PLACED YESTERDAY. WILL CONTINUE TO MONITOR. SHES A CLOSE SBA FOR BSC. L GROIN SITE CDI NO HEMATOMA NOR DRAINAGE FROM DAY PRIOR. ENCOURAGED HER TO USE CALL LIGHT FOR ALL NEEDS. PT DESIRES FOR DOOR TO REMAIN SHUT; WILL PLACE NOTE EVERYONE LEAVES IT AJAR UPON DEPARTURE.
[2019-06-29 07:50] VITALS: BP 98/44
[2019-06-29 11:50] VITALS: BP 101/36
[2019-06-29 16:20] VITALS: BP 115/39
[2019-06-29 16:35] VITALS: BP 128/66
[2019-06-29 19:45] VITALS: BP 123/43
[2019-06-30] VITALS (8 sets, daily range): BP systolic 117–125; BP diastolic 42–53
--- NOTE | 2019-06-30 00:42 | NUR ---
PT LYING IN BED. DENIES PAIN. RESTING COMFORTABLY. NO NEEDS VOICED. CALL LIGHT WITHIN REACH. FREQUENT OBSERVATION.
[2019-06-30 03:25] LABS: HEMATOCRIT 27.4 % (37.0-47.0); HEMOGLOBIN 8.8 gm/dL (12.0-15.0); MCH 26.7 pg (26.0-34.0); MCHC 32.2 g/dL (28.0-37.0); MCV 82.7 fL (80.0-100.0); PLATELET COUNT 344 thou/uL (150-400); RBC 3.32 mil/uL (4.20-5.00); RDW 18.7 % (10.5-14.5); WBC 11.2 thou/uL (4.0-11.0)
[2019-06-30 03:44] LABS: ALBUMIN 1.9 g/dL (3.4-5.0); CALCIUM 8.1 mg/dL (8.5-10.1); CREATININE 7.3 mg/dL (0.6-1.0); POTASSIUM 3.7 mmol/L (3.5-5.1)
[2019-06-30 04:20] LABS: ABSOLUTE NEUTROPHILS 9.9 thou/uL (1.4-8.2); ANISOCYTOSIS 2+
--- NOTE | 2019-06-30 15:57 | NUR ---
PT CARE ASSUMED AT 0700. ASSESSMENTS CHARTED. MEDICATIONS CHARTED. PT COOPERATIVE, RESTING ALL DAY. UP TO BSC WITH ASSISTANCE, CALLS. LEGS WEAK.
--- NOTE | 2019-07-01 01:19 | NUR ---
PT LYING IN BED. TRANSFERRING TO BEDSIDE COMMODE WITH ASSIST X1 AND IS TOLERATING FAIR. TRAMADOL PROVIDING PAIN RELIEF. RESTING COMFORTABLY. NO NEEDS VOICED. CALL LIGHT WITHIN REACH. FREQUENT OBSERVATION.
[2019-07-01 05:26] VITALS: BP 127/50
[2019-07-01 05:59] LABS: HEMATOCRIT 28.4 % (37.0-47.0); HEMOGLOBIN 9.3 gm/dL (12.0-15.0); MCH 26.8 pg (26.0-34.0); MCHC 32.8 g/dL (28.0-37.0); MCV 81.9 fL (80.0-100.0); PLATELET COUNT 362 thou/uL (150-400); RBC 3.47 mil/uL (4.20-5.00); RDW 19.4 % (10.5-14.5); WBC 11.5 thou/uL (4.0-11.0)
[2019-07-01 06:32] LABS: ALBUMIN 1.9 g/dL (3.4-5.0); CALCIUM 8.2 mg/dL (8.5-10.1); CREATININE 7.6 mg/dL (0.6-1.0); PHOSPHORUS 6.7 mg/dL (2.5-4.9); POTASSIUM 3.6 mmol/L (3.5-5.1)
[2019-07-01 10:25] LABS: ALBUMIN 1.9 g/dL (3.4-5.0); DIRECT BILIRUBIN < 0.1 mg/dL (<0.1-0.2); SGOT 141 U/L (15-37); SGPT 197 U/L (30-65); TOTAL BILIRUBIN 0.3 mg/dL (<0.1-1.0); TOTAL PROTEIN 5.2 g/dL (6.4-8.2)
[2019-07-01 11:12] LABS: ANISOCYTOSIS 2+; MYELOCYTES 1 %; OVALOCYTES 1+
[2019-07-01 13:08] LABS: KAPPA FREE LIGHT CHAINS 62.3 mg/L (3.3-19.4); KAPPA/LAMBDA RATIO 1.15 (0.26-1.65); LAMBDA FREE LIGHT CHAINS 54.3 mg/L (5.7-26.3)
[2019-07-01 16:07] LABS: GLOBULIN TOTAL 2.6 g/dL (2.2-3.9); M-SPIKE Not Observed g/dL (Not Observed)
[2019-07-01 16:15] VITALS: BP 101/53
--- NOTE | 2019-07-01 16:53 | NUR ---
Assumed patient care at 0715. Blood pressure reading 97/41; she is asymptomatic. All other vital signs within normal limits. Patient alert and oriented x's 4. She is up with assist times 1 to bedside commode. Patient is pleasant and compliant, no adverse affects to medications. Patient was given Lasix 80mg IV push this am; she has had good output with this medication.
[2019-07-01 17:54] LABS: HEMATOCRIT 30.7 % (37.0-47.0); MCH 26.8 pg (26.0-34.0); MCHC 32.6 g/dL (28.0-37.0); MCV 82.3 fL (80.0-100.0); RBC 3.73 mil/uL (4.20-5.00); RDW 19.3 % (10.5-14.5); WBC 12.1 thou/uL (4.0-11.0)
[2019-07-01 18:07] LABS: APTT 30.4 Seconds (24.5-32.8); PROTIME 9.4 Seconds (9.3-11.4)
[2019-07-01 19:37] VITALS: BP 118/44
[2019-07-02 04:40] LABS: ALBUMIN 1.9 g/dL (3.4-5.0); CALCIUM 8.2 mg/dL (8.5-10.1); CREATININE 8.1 mg/dL (0.6-1.0); PHOSPHORUS 7.7 mg/dL (2.5-4.9)
[2019-07-02 05:00] VITALS: BP 122/55
[2019-07-02 07:30] VITALS: BP 121/55
[2019-07-02 11:08] LABS: ANA INTERPRETATION Negative (Negative); ANTI-RNP <0.2 AI (0.0-0.9)
--- NOTE | 2019-07-02 11:11 | NUR ---
PT ASSESSED, VSS, RESTING IN BED, REPOSITIONED, PT VERY WEAK, REVIEWED POC, PT VERBALIZED UNDERSTANDING, VERY PLEASANT, PROPOSAL WRITER PLACED EXTERNAL CATH AFTER IV LASIX GIVEN, WILL MONITOR, PT WORKED WITH PT, WILL MONITOR
--- NOTE | 2019-07-02 11:31 | NUR ---
Assess due to high BMI 44.5 and length of stay. Admitted with pelvic pain and elevated LFT, renal failure with weakness. PMH: CHF, DM, CKD, HTN. Extreme class III obesity indicated. Upon visit, lights out, pt not very talkative and voiced no questions regarding heart healthy diet order. BG well controlled. Large wt fluctuations 255-301 lb over past admits. In 04/2019 pt had reported a loss of 52 lb. On lasix diuresis. Renal following, significant elevation in bun/creatinine, no dialysis at this time. Appetite is good. Low nutrition risk
[2019-07-02 16:05] VITALS: BP 104/50
[2019-07-02 19:30] VITALS: BP 113/47
[2019-07-02 23:18] VITALS: BP 109/46
[2019-07-03 03:59] VITALS: BP 140/54
[2019-07-03 05:34] LABS: CALCIUM 8.2 mg/dL (8.5-10.1); CREATININE 8.3 mg/dL (0.6-1.0); PHOSPHORUS 8.7 mg/dL (2.5-4.9); POTASSIUM 3.9 mmol/L (3.5-5.1)
[2019-07-03 05:41] LABS: SGOT 80 U/L (15-37); SGPT 150 U/L (30-65); TOTAL BILIRUBIN 0.3 mg/dL (<0.1-1.0); TOTAL PROTEIN 4.7 g/dL (6.4-8.2)
[2019-07-03 05:46] LABS: DIRECT BILIRUBIN < 0.1 mg/dL (<0.1-0.2)
--- NOTE | 2019-07-03 07:40 | NUR ---
ASSUMED CARE OF PT AT SHIFT CHANGE, A&0X4, SBA W/WALKER, STATES SHE NEEDS MORE REST, HASN'T HAD BM FOR ABOUT A WEEKS, STATES CONSTIPATION HER NORM. WILL ADM FIBER THIS A.M. IF AVAILABLE IF NOT WILL COMM W/PHYSICIAN. ENCOURAGED HER TO USE CALL LIGHT FOR ANY NEEDS. HAS HEP GTT RUNNING, HEATER ROOM HELPER STATES FIRST LAB DRAW HEP WAS RUNNING. WILL CHECK RESULTS AND CHANGE IF APPLICABLE. PT ASKS FOR TRAM THIS A.M. FOR SPINE AND BLE. ENCOURAGED HER TO MAKE POSITION CHANGES MUCH POSSIBLE. SEE SEPARATE INTEREVENTIONS FOR ASSESSMENTS.
--- NOTE | 2019-07-03 07:46 | NUR ---
PTS HAD INCREASED NEED OF OXYGEN, PHYSICIAN CALLED WITH ORDERS RECEIVED FOR BREATHING TREATMENT AND PAIN MEDICATION
[2019-07-03 08:00] VITALS: BP 105/53
--- NOTE | 2019-07-03 10:17 | NUR ---
Sp with patient by phone. reviewed need for post acute care. Patient in agreement she is hopeful insurance will give auth for acute rehab here at [facility]. She strongly prefers not to go to skilled facility. Faxed [employer] skilled list to unit to be given to patient if not acute rehab.
[2019-07-03 12:00] VITALS: BP 116/49
[2019-07-03 16:30] VITALS: BP 124/45
[2019-07-03 19:54] VITALS: BP 140/40
--- NOTE | 2019-07-04 03:03 | NUR ---
ASSUMED PT CARE AT 1900, PT IS AWAKE, ALERT AND ORIENTEDX4, MAKES NEEDS KNOWN, DENIES CHEST PAIN, SOB, COUGH, NAUSEA AND VOMITTING, C/O LOWER BACK PAIN AND BLE, PAIN MEDICATIONS PRN GIVEN WITH RELIEF, APTT CRITICAL RESULT RECEIVED, PROTOCOL FOLLOWED, WILL RECHECK APTT AT 0615, CPAP IN USE, VSS, BS STABLE NO COVERAGE, UPX1 TO THE BEDSIDE COMMODE, STATES FEELING BETTER EACH DAY, REQUESTED TRAMADOL FOR PAIN AGAIN, RESTING IN BED, NO DISTRESS NOTED AT THIS TIME, WILL CONTINUE TO MONITOR
[2019-07-04 04:52] VITALS: BP 120/50
[2019-07-04 07:30] VITALS: BP 109/47
[2019-07-04 07:35] LABS: HEMATOCRIT 25.6 % (37.0-47.0); HEMOGLOBIN 8.6 gm/dL (12.0-15.0); MCH 27.8 pg (26.0-34.0); MCHC 33.8 g/dL (28.0-37.0); MCV 82.4 fL (80.0-100.0); RBC 3.1 mil/uL (4.20-5.00); RDW 19.5 % (10.5-14.5); WBC 10.4 thou/uL (4.0-11.0)
[2019-07-04 08:08] LABS: ALBUMIN 2.1 g/dL (3.4-5.0); CALCIUM 8.5 mg/dL (8.5-10.1); CREATININE 8.5 mg/dL (0.6-1.0); PHOSPHORUS 9.7 mg/dL (2.5-4.9); POTASSIUM 4.4 mmol/L (3.5-5.1)
[2019-07-04 12:00] VITALS: BP 100/46
--- NOTE | 2019-07-04 14:44 | NUR ---
[facility] can accept the pt for acute rehab once she is off the heprin gtt. Care team and the attending updated. Will follow.
[2019-07-04 16:30] VITALS: BP 103/45
--- NOTE | 2019-07-04 19:06 | NUR ---
ASSUMED CARE AT SHIFT CHANGE, ASSESSMENT DOCUMENTED AND VSS. AFIB ON THE MONITOR AND REMAINS ON HEPARIN GTT. C/O BACK AND RT LEG MEDICATED INDICATED AND WILL CONTINUE WITH POC.
[2019-07-04 20:21] VITALS: BP 90/48
[2019-07-05 03:55] VITALS: BP 123/55
[2019-07-05 04:23] LABS: CALCIUM 8.4 mg/dL (8.5-10.1); CREATININE 8.6 mg/dL (0.6-1.0); PHOSPHORUS 10.4 mg/dL (2.5-4.9); POTASSIUM 4.5 mmol/L (3.5-5.1)
--- NOTE | 2019-07-05 04:24 | NUR ---
ASSUMED CARE OF PATIENT AT 1900. PATIENT CONTINUES ON HEPARIN DRIP. NO BLEEDING NOTED. SOFT BP AT BEDTIME, ASYMPTOMATIC WITH IMPROVEMENT THIS AM. PATIENT DENIED PAIN THROUGHOUT NIGHT. PATIENT SLEPT WELL WITH CPAP IN PLACE AND CONTINUES ON RA. PATIENT PROGRESSING TOWARDS GOALS.
[2019-07-05 07:30] VITALS: BP 112/33
[2019-07-05 11:10] VITALS: BP 104/48
--- NOTE | 2019-07-05 12:09 | NUR ---
PATIENT SEEN THIS DATE BY DRILL SHARPENER OPERATOR TO DISCUSS EXPECTATIONS AND REQUIREMENTS FOR 5[facility] ADMISSION. PATIENT GIVEN 5[facility] BROCHURE. PATIENT WOULD LIKE TO ADMIT TO REHAB WHEN MEDICALLY STABLE. PER PHYSICIAN, PATIENT WILL NOT BE READY FOR REHAB ADMISSION UNTIL AFER WEEKEND. WILL CONTINUE TO FOLLOW AND PLAN FOR ADMISSION EARLY NEXT WEEK IF PATIENT IS APPROPRIATE FOR REHAB AND MEDICALLY STABLE. WILL NEED TO CONFIRM AUTHORIZATION FOR REHAB STAY WITH INSURANCE. THANK YOU FOR THIS REFERRAL.
[2019-07-05 17:00] VITALS: BP 123/36
--- NOTE | 2019-07-05 17:44 | NUR ---
RECEIVED PT'S CARE AROUND 0735; PT. ON BED; AOX4; DURING AM ASSESSMENT NO C/O PAIN; AM MEDICATIONS GIVEN; EDUCATED ABOUT FALL PRECAUTIONS; ST. UNDERSTANDING; EDUCATED ABOUT I/O; ST. UNDERSTANDING; AFIB ON THE MONITOR; PER SPRING MACHINE OPERATOR PUBLIC SERVICES ASSISTANT CONSULT PHARMACYST; PHARMACYST NOTIFIED; CLOSE TO NOON JUANITA VALENCIA CALLED & REQUESTED TO STOP HEPARIN GTT AT 1400; TWO HOURS LATER AFTER GIVEN ELIQUIS; PO MEDICATION GIVEN; HEPARIN GTT STOPPED AT 1400; MONITORING; ASSESSMENT CHARGED; FOLLOWING POC; WILL PASS ON REPORT;
[2019-07-05 20:15] VITALS: BP 110/40
[2019-07-06 05:25] VITALS: BP 114/50
[2019-07-06 05:35] LABS: ALBUMIN 2.1 g/dL (3.4-5.0); CALCIUM 8.2 mg/dL (8.5-10.1); CREATININE 8.6 mg/dL (0.6-1.0); PHOSPHORUS 9.5 mg/dL (2.5-4.9); POTASSIUM 4.5 mmol/L (3.5-5.1)
--- NOTE | 2019-07-06 06:13 | NUR ---
ASSUMED CARE OF PATIENT AT 1900. PATIENT SBA WITH TRANSFERS, NEEDING MAJORITY OF ASSISTANCE TO HELP SIT UP IN BED AND WITH GETTING LEGS BACK IN BED WHEN LAYING DOWN. PATIENT CALLS APPROPRIATELY FOR HELP. CPAP APPLIED AT HS. PATIENT SLEPT GOOD THROUGHOUT NIGHT AND IS PROGRESSING WELL TOWARDS GOALS.
[2019-07-06 07:30] VITALS: BP 131/46
--- NOTE | 2019-07-06 09:19 | NUR ---
ASSUMED CARE OF PT AT SHIFT CHANGE, EXPRESSES CONCERN ABOUT REHAB AND IF SHE'S READY OR NOT, HAS CONSTIPATION HER NORM, SENNA ORDERED PER HER REQUEST IT'S HER REGIMEN AT HOME, WITH BM'S ONLY ONCE A WEEK. A&0X4, AMB WITH CLOSE SBA AND WALKER, USES BSC. SEE SEPARATE INTERVENTIONS FOR ASSESSMENTS. RIJ TEMP DIALYSIS CATH, CREATINE LEVELS OUT NEAR 8 FOR NOW, UP 3 FROM ADMISSION. ENCOURAGED TO USE CALL LIGHT FOR NEEDS
[2019-07-06 12:00] VITALS: BP 110/39
--- NOTE | 2019-07-06 14:03 | NUR ---
DISCHARGE: NUISANCE WILDLIFE TRAPPER CALLED TO SAY SHE SPOKE WITH DR. SOSA; PT WAS GIVEN D/C ORDER YET [facility] CALLED TO SAY THEY WERE WAITING ON DR. ALVARADO APPROVAL AND DIDN'T HAVE IT YET. LET PT KNOW; WE'LL WALK IN HER ROOM LATER IN THE SHIFT. SHE DEFERS AMB IN HALLS EVEN WITH ADDITIONAL GOWN COVERING; INTROVERT HENCE THE SIGN ON DOOR SHE REQUESTED. PT IN GOOD SPIRITS; SHE HAD SOME FEAR ABOUT GOING IN SPITE OF GENTLE FACTS ON ADDITIONAL HELP SHE'LL GET ON THE UNIT
[2019-07-06 16:50] VITALS: BP 111/39
[2019-07-06 19:34] VITALS: BP 106/33
--- NOTE | 2019-07-07 04:00 | NUR ---
ASSUMED CARE OF PATIENT AT 1900. PATIENT C/O OF PAIN IN BACK AT BEGINNING OF SHIFT. ADMINISTERED PRN TRAMADOL ORDERED. PATIENT STATES THAT SHE STILL HAS NOT HAD A BOWEL MOVEMENT. LAST BOWEL MOVEMENT WAS AROUND 06/27/19. PATIENT DENIES NAUSEA, VOMITING, OR ABDOMINAL PAIN. ABDOMEN IS SOFT. ADMINISTERED SENNA ORDERED. WILL CONTINUE TO MONITOR.
[2019-07-07 04:33] LABS: HEMATOCRIT 25.9 % (37.0-47.0); HEMOGLOBIN 8.3 gm/dL (12.0-15.0); MCH 26.9 pg (26.0-34.0); MCHC 32.2 g/dL (28.0-37.0); MCV 83.5 fL (80.0-100.0); RBC 3.1 mil/uL (4.20-5.00); RDW 20.1 % (10.5-14.5); WBC 10.6 thou/uL (4.0-11.0)
[2019-07-07 04:59] LABS: ALBUMIN 2.3 g/dL (3.4-5.0); CALCIUM 8.7 mg/dL (8.5-10.1); CREATININE 8.3 mg/dL (0.6-1.0); PHOSPHORUS 9.4 mg/dL (2.5-4.9); POTASSIUM 4.6 mmol/L (3.5-5.1)
[2019-07-07 05:19] VITALS: BP 134/62
[2019-07-07 08:00] VITALS: BP 118/40
[2019-07-07 11:30] VITALS: BP 137/56
--- NOTE | 2019-07-07 12:58 | NUR ---
RECEIVED PT'S CARE AROUND 0720; PT. ON BED; AOX4; DURING AM ASSESSMENT C/O PAIN OVER LOWER BACK; 04/29; REFUSED PRN PAIN MEDICATION; EDUCATED ABOUT PAIN MANAGEMENT; ST. UNDERSTANDING; AFIB ON THE MONITOR; AM MEDICATIONS GIVEN; EDUCATED ABOUT CALLING BEFORE GETTING OUT FROM BED TO COMMODE; ST. UNDERSTANDING; PER ARTIFICIAL MARBLE WORKER PT. WILL BE ABLE TO BE TRANSFER TO [facility] REHAB LATER ON THE DAY; PT. NOTIFIED; ST. UNDERSTANDING; PT. NOT ABLE TO HAVE A BM FOR MORE THAN A WEEK; ST. DOES NOT NEED SUPPOSITORY; PRN MIRALAX WILL BE GIVEN; ST. ABLE TO PASS GAS; REPORT CALLED CLOSE TO 1300; ASSESSMENT CHARGED FOLLOWING POC; PASSED ON REPORT;
--- NOTE | 2019-07-08 05:55 | HC ---
[facility] [place] [place] [address] CONSULTATION Name: KATHERINE MATHEWS Room #: 205-P [facility] IN M.R.#: [id number] Admission: 06/26/19 Attend Phys: Sekou Valdovinos MD Discharge: 07/07/19 Date of : 54 Report #: [id number] THIS REPORT FOR: cc: SANDY - Family physician unknown FAM - Family physician unknown Sera Mckeon MD ~ CC: SANDY unknown Sekou Valdovinos REASON FOR CONSULTATION: Acute kidney injury. REASON FOR PRESENTATION: Bilateral lower extremity weakness. HISTORY OF PRESENT ILLNESS: This is a very well-known patient to me. She is a chronic kidney disease patient due to diabetes mellitus and hypertension. She follows up with me in the clinic. She presented with nonspecific bilateral lower extremity swelling, weakness and was on the hypotensive side. She was not able to mobilize because of that. She denies any fever or chills. No nausea or vomiting. No diarrhea. She denies any changes in her medications. No chest pain or palpitation. She was discovered to have an acute kidney injury with an elevated liver enzyme. She was admitted to further evaluate. From the renal perspective, as stated above, the patient has chronic kidney disease due to longstanding diabetes mellitus and hypertension. She sees me in the clinic. Her baseline creatinine is around 2. She had a very complicated past medical history, when it comes to her heart after an ablation procedure. PAST MEDICAL HISTORY: 1. Chronic kidney disease, baseline creatinine is around 2. 2. Diabetes mellitus. 3. Hypertension. 4. Hyperlipidemia. 5. History of methicillin-resistant Staph aureus infections. 6. Emergent open heart surgery after a perforation during an ablation procedure. 7. Hypothyroidism. 8. Depression. 9. Anxiety. FAMILY HISTORY: Significant for hypertension and diabetes mellitus. SOCIAL HISTORY: No drug or alcohol abuse. ALLERGIES: SULFA. MEDICATIONS: 1. Eliquis. 2. Isosorbide mononitrate. [facility] [address] [place] [address] CONSULTATION Name: KATHERINE MATHEWS Room #: [address] [place] [address] [place] ..#: [id number] Admission: 06/26/19 Attend Phys: Sekou Valdovinos MD Discharge: 07/07/19 Date of : 54 Report #: [id number] 3. Metoprolol. 4. Potassium. 5. Sitagliptin (Januvia). 6. Levothyroxine. 7. Crestor. REVIEW OF SYSTEMS: GENERAL: Significant for generalized weakness. No fever or chills. CARDIOVASCULAR: No chest pain or palpitation. PULMONARY: No cough or hemoptysis. GASTROINTESTINAL: Occasional nausea and loss of appetite, but no vomiting. No hematemesis. GENITOURINARY: No frequency, no urgency. NEUROLOGICAL: As per the history of present illness. PHYSICAL EXAMINATION: GENERAL: The patient is alert and oriented. VITAL SIGNS: Temperature is 36.6, blood pressure is 135/62. HEAD AND NECK: No jugular venous distention. CHEST: No crackles. CARDIOVASCULAR: Regular with no rub detected. ABDOMEN: Soft, nontender. EXTREMITIES: Lower extremities, no edema. LABORATORY DATA: White blood cell count is 19.1, platelet is 481,000. Sodium is 132, up from 126; potassium is 4.5; BUN is 84, up from 79; creatinine is 6, up from 5.4. Liver enzymes are elevated. AST is 128, ALT is 403. UA with +2 protein and +3 blood; however, no red blood cells. IMPRESSION: 1. Acute kidney injury. 2. Hypotension. 3. Elevated white blood cell count. 4. Chronic kidney disease with a baseline creatinine of around 2.0. PLAN: 1. Really, it is unclear to me the reason for the patient's presentation including the weakness, elevated liver enzymes and acute kidney injury. I will start the appropriate investigations for her acute kidney injury. She has no obstructions based on the images that were obtained. As of this moment, continue to hold her diuretics. 2. Continue to hold blood pressure medications. 3. Start gentle IV hydration. 4. Hepatology consultation. [address] [address] CONSULTATION Name: KATHERINE MATHEWS Room #: [address] [place] [address] [place] M.R.#: [id number] Admission: 06/26/19 Attend Phys: Sekou Valdovinos MD Discharge: 07/07/19 Date of : 54 Report #: [id number] 5. Stop all hepatotoxic and nephrotoxic medications. 6. We will continue to follow. <ELECTRONICALLY SIGNED> By: Sera Mckeon MD 07/08/1953 9 Sera Mckeon MD /nt
== END 2019-07-07 13:47 | DRG 871 ==
LOC: ER 12:43 → EROBS 15:14 → 2N 15:14
PROVIDERS: Emergency Medicine; Hospitalist; Internal Medicine Nephrology; Nurse Practitioner; ADMIT Internal Medicine
DX: A41.9 Sepsis, unspecified organism (principal); E43 Unspecified severe protein-calorie malnutrition; K72.00 Acute and subacute hepatic failure without coma; N17.0 Acute kidney failure with tubular necrosis; J96.01 Acute respiratory failure with hypoxia; I74.3 Embolism and thrombosis of arteries of the lower extremities; M62.82 Rhabdomyolysis; E87.1 Hypo-osmolality and hyponatremia; I50.32 Chronic diastolic (congestive) heart failure; N39.0 Urinary tract infection, site not specified; I13.0 Hypertensive heart and chronic kidney disease with heart failure and stage 1 through stage 4 chronic kidney disease, or unspecified chronic kidney disease; Z68.41 Body mass index [BMI] 40.0-44.9, adult; K86.2 Cyst of pancreas; N28.0 Ischemia and infarction of kidney; I77.1 Stricture of artery; Z79.01 Long term (current) use of anticoagulants; E11.22 Type 2 diabetes mellitus with diabetic chronic kidney disease; E78.5 Hyperlipidemia, unspecified; E03.9 Hypothyroidism, unspecified; Z90.710 Acquired absence of both cervix and uterus; Z90.49 Acquired absence of other specified parts of digestive tract; M19.90 Unspecified osteoarthritis, unspecified site; N18.3 Chronic kidney disease, stage 3 (moderate); F43.10 Post-traumatic stress disorder, unspecified; F32.9 Major depressive disorder, single episode, unspecified; M10.9 Gout, unspecified; E66.01 Morbid (severe) obesity due to excess calories; I48.0 Paroxysmal atrial fibrillation; D64.9 Anemia, unspecified; F41.1 Generalized anxiety disorder; I95.9 Hypotension, unspecified; E11.42 Type 2 diabetes mellitus with diabetic polyneuropathy; G47.33 Obstructive sleep apnea (adult) (pediatric); G47.00 Insomnia, unspecified; E83.51 Hypocalcemia; R91.1 Solitary pulmonary nodule; E83.39 Other disorders of phosphorus metabolism; E11.51 Type 2 diabetes mellitus with diabetic peripheral angiopathy without gangrene; K57.90 Diverticulosis of intestine, part unspecified, without perforation or abscess without bleeding; Z95.1 Presence of aortocoronary bypass graft; Z82.49 Family history of ischemic heart disease and other diseases of the circulatory system; Z79.84 Long term (current) use of oral hypoglycemic drugs; Z79.899 Other long term (current) drug therapy; Z88.8 Allergy status to other drugs, medicaments and biological substances; Z83.3 Family history of diabetes mellitus; Z79.4 Long term (current) use of insulin
CPT/HCPCS: 10081

== ENCOUNTER 2019-07-04 11:10 | Inpatient (IN) | payer OTHER ==
[~2019-07-04] VITALS: Ht 175.3 cm; Wt 133.4 kg
[2019-07-07 14:20] VITALS: BP 117/43
--- NOTE | 2019-07-07 15:06 | NUR ---
1400 PATIENT ADMITTED TO ROOM 511. PATIENT IS ALERT AND ORIENTED X4. PATIENT COLON'S, PYTHON DJANGO DEVELOPER ARE EQUAL. PATIENT IS OBESE. PATIENT LUNGS ARE CLEAR AND DEMINISHED. ABD IS SOFT AND ROUNDED. NO BM IN 1.5 WEEKS. LAXATIVES GIVEN. PAT IS UP WITH ASSIST OF 1 STAFF AND GAIT BELT TO TRANSFER TO CHAIR. FALL AND SAFETY PROTCOLS IN PLACE. +1 PEDAL EDEMA NOTED. PATIENT HAS RIGHT IJ DIALYSIS CATHETER IN [facility]. CR. 8.3 . PLAN PT/OT/ST AMAYA IN A.M. CALL LIGHT IN REACH WILL CONTINUE TO MONITER
[2019-07-07 19:16] VITALS: BP 130/47
--- NOTE | 2019-07-08 03:39 | NUR ---
UP TO TOILET WITH WALKER AND SBA. BLOOD SUGAR AT HS = 108, TRAJENTA ORDERED, SNACK PLACIDO CRACKERS ONLY. RIJ DIALYSIS CATHETER INTACT AND STANDING BY, PATIENT HAS STARTED VOIDING, WILL HAVE RENAL FUNCTION LAB DRAWN AGAIN THIS MORNING.
[2019-07-08 06:56] LABS: HEMATOCRIT 23.4 % (37.0-47.0); HEMOGLOBIN 7.7 gm/dL (12.0-15.0); MCH 27.3 pg (26.0-34.0); MCHC 32.8 g/dL (28.0-37.0); MCV 83.2 fL (80.0-100.0); RBC 2.81 mil/uL (4.20-5.00); RDW 20.1 % (10.5-14.5); WBC 8.6 thou/uL (4.0-11.0)
[2019-07-08 07:11] LABS: ALBUMIN 2.2 g/dL (3.4-5.0); CALCIUM 8.3 mg/dL (8.5-10.1); CREATININE 7.9 mg/dL (0.6-1.0); PHOSPHORUS 8.9 mg/dL (2.5-4.9); POTASSIUM 4.8 mmol/L (3.5-5.1)
[2019-07-08 07:38] VITALS: BP 92/37
[2019-07-08 08:07] VITALS: BP 92/37
--- NOTE | 2019-07-08 13:03 | NUR ---
Nutrition: pt admitted to rehab unit with severe acute rhabdomylosis causing DREW/ATN. Nephrology on consult. Will not require dialysis and renal status improving. Consulted due to "poor intake" however per [employer] records pt eating 75-100% of meals. Voices good appetite. No BM > 1 week. On bowel regimen. BG controlled. Pt reports weight prior to admit 255# and current weight up 40# with fluid. No diuretic on present, was on lasix on acute. Phos elevated at 8.9. BUN 115, creat 7.9. Would rec adding renal to diet order. Consider low risk otherwise.
--- NOTE | 2019-07-08 13:08 | NUR ---
Nutrition: REC add renal diet restrictions to diet order.
--- NOTE | 2019-07-08 13:57 | NUR ---
chart review. rody spoke with carolina via phone call to her room. she is able to make her needs know. intro to rody, transition of care ie home health and team meet. she reported " independent prior to hospital. has walker. 2 story home with 14 steps inside home. manage own medication. drives vehicle and works outside the home. if need hh it ok but had [facility] before and will not use them again."/carolina. will cont following as needed for dcp.
[2019-07-08 16:01] LABS: FOLIC ACID 12.5 ng/mL (8.6-58.9)
--- NOTE | 2019-07-08 18:23 | NUR ---
ASSUMED PT CARE AT 0700. PATIENT IS ALERT AND ORIENTED X4. ABLE TO VOICE HER NEEDS. REASSESSMENT PER CHART. CUSTOMER SUPPORT SPECIALIST ARE EQUAL. PATIENT IS OBESE. PATIENT LUNGS ARE CLEAR AND DIMINISHED. ABD IS SOFT AND ROUNDED. HAD SMALL BM THIS AM. NEW ORDER FOR LAXATIVES ADDED. PT IS UP WITH ASSIST MIN ASSIST AND GAIT BELT/WALKER ASSISTED TO BATHROOM. PT HAS CKD STAGE 3 CREATINE WAS 8.3 DOWN TO 7.9 TODAY, PT ABLE TO URINATE 4X TIME IN BATHROOM WITH CLEAR YELLOW URINE. OFFERED SUPPORTIVE CARE. ENCOURAGED PT TO VOICE HER NEEDS. C/O BLE PAIN 6 THIS AM. DIDN'T HAVE PRN FOR PAIN. PT REQUESTED FOR TRAMADOL. FLASH SAID PT CAN'T BE ON TRAMADOL SINCE PT HAS KIDNEY ISSUES. OBTAINED ORDER FOR PRN TYLENOL AND GIVEN. PT DENIES PAIN NOW. BS 125. ACHS DISCONTINUED. FALL AND SAFETY PROTCOLS IN PLACE. +1 PEDAL EDEMA NOTED. PATIENT HAS RIGHT IJ DIALYSIS CATHETER IN PLACE. PT HAD SHOWER WITH OT AND WORKING WITH PHYSICAL THERAPIST IN THE GYM. PTTOLERATED WELL WITH HER THERAPY. HER GOALS ARE TO CONTINUE WITH HER THERAPY AND GET STRONGER. FALL PRECAUTION IN PLACE. CALL LIGHT WITHIN REACH. WILL GIVE REPORT TO NIGHT NURSE TO CONTINUE TO MONITOR.
[2019-07-08 20:00] VITALS: BP 139/55
--- NOTE | 2019-07-09 05:30 | NUR ---
UP TO TOILET WITH STANDBY ASSIST, NO C/O PAIN. BRIEF DISCUSSION WITH DR MCKEON ROUNDDANIELLE THIS MORNING. STATES THAT HE PLANS TO CALL HER LATER TODAY CONCERNING TODAY'S LABS WHEN THEY BECOME AVAILABLE. HER FOND HOPE IS THAT SHE WILL SOON HAVE RIJ DIALYSIS CATH REMOVED IT BECOMES UNNECESSARY.
[2019-07-09 05:31] LABS: ALBUMIN 2.3 g/dL (3.4-5.0); CALCIUM 8.3 mg/dL (8.5-10.1); PHOSPHORUS 8.6 mg/dL (2.5-4.9); POTASSIUM 4.4 mmol/L (3.5-5.1)
[2019-07-09 07:30] VITALS: BP 111/53
--- NOTE | 2019-07-09 10:45 | NUR ---
hh list choice if needed and vendor form given to bedside nurse to pass on to chrisit and place in chart.
--- NOTE | 2019-07-09 10:54 | NUR ---
ASSUMED PT CARE AT 0700. PATIENT IS ALERT AND ORIENTED X4. ABLE TO VOICE HER NEEDS. REPORTS DIDN'T SLEEP WELL LAST NIGHT. TOOK AMBIEN SCHEDULE. TALKED WITH FLASH AND MAY NEED ADD MELATONIN. REASSESSMENT PER CHART. ICING COATER ARE EQUAL. PATIENT IS OBESE. PATIENT LUNGS ARE CLEAR AND DIMINISHED. ABD SOUND PRESENT HYPOATIVE. HG 7.7, NEW ORDER FOR IV IRON. NEW IV INSERTED ON RIGHT FA/22 G. IRON GIVEN ORDERED. MORNING MEDS GIVEN. LAXATIVES GIVEN SCHEDULED. PT HAS MODERATE FIRM BM, HAS SOME FLESHED BLEEDING WITH WIPING. WILL CONTINUE TO MONITOR BLEEDING. PT IS UP WITH ASSIST MIN ASSIST AND GAIT BELT/WALKER ASSISTED TO BATHROOM. PT HAS CKD STAGE [address] 8[address]O TODAY. [address] GILLIAM CONTINUE TO MONITOR. HAS NO DIFFICULTY WITH URINATION. PT DRINKS ADEQUATE FLUID. APPETITE GOOD. OFFERED SUPPORTIVE CARE. ENCOURAGED PT TO VOICE HER NEEDS. +1 PEDAL EDEMA NOTED. PATIENT HAS RIGHT IJ DIALYSIS CATHETER IN PLACE. FALL PRECAUTION IN PLACE. HER GOAL IS TO PARTICIPATE WITH THERAPY AND RESTING. WILL CONTINUE TO MONITOR.
[2019-07-09 14:50] LABS: HEMATOCRIT 22.7 % (37.0-47.0); HEMOGLOBIN 7.5 gm/dL (12.0-15.0)
[2019-07-09 19:20] VITALS: BP 124/67
--- NOTE | 2019-07-10 02:22 | NUR ---
ASSUMED CARE OF PT ON 07/09/19 AT APPROXIMATELY 1930. PT IS A&OX4. IS ON ROOM AIR. DENIES PAIN. IS STABLE. IS UP WITH 1 ASSIST, SHIRLEY, W. FALL PRECAUTIONS & HOURLY ROUNDING MAINTAINED. HAS BILAT LE 1-2+ PITTING EDEMA. LEGS ELEVATED. LABS & VITALS REVIEWED. PT UESE CPAP AT HS. PT REQUESTED AMBIEN FOR SLEEP. CALL LIGHT WITHIN REACH. WILL CONTINUE TO MONITOR.
[2019-07-10 07:13] LABS: ALBUMIN 2.2 g/dL (3.4-5.0); CALCIUM 8.2 mg/dL (8.5-10.1); CREATININE 7.4 mg/dL (0.6-1.0); PHOSPHORUS 8.1 mg/dL (2.5-4.9); POTASSIUM 4.3 mmol/L (3.5-5.1)
[2019-07-10 07:53] LABS: ALBUMIN 2.2 g/dL (3.4-5.0); DIRECT BILIRUBIN 0.2 mg/dL (<0.1-0.2); TOTAL BILIRUBIN 0.3 mg/dL (<0.1-1.0); TOTAL PROTEIN 5.4 g/dL (6.4-8.2)
[2019-07-10 08:00] VITALS: BP 115/50
[2019-07-10 08:29] LABS: HEMATOCRIT 20.8 % (37.0-47.0)
--- NOTE | 2019-07-10 16:14 | NUR ---
ASSUMED CARES AT 0700. PT AWAKE, ALERT AND ORIENTED *4. DENIES PAIN. VITALS REMAIN STABLE. RIGHT LE EDEMA, EXTREMITY ELEVATED. PULSES 2/2. RIGHT IJ IS INTACT AND PATENT. RIGHT WRIST IV INTACT AND PATENT. ENCOURAGING FLUID INTAKE. BLOOD NOTED ON STOOL AND ON BED SHEET, STOOL SAMPLE COLLECTED FOR OCCULT STOOL. PT C/O FATIGUE AFTER THERAPY R/T LOW HGB, CONTINUE TO MONITOR. PT UP WITH 1 MIN ASSIST, GB AND WALKER AND TOLERATED WELL. Q1H VISUAL CHECKS. CALL LIGHT WITHIN REACH. FALL PRECAUTIONS IN PLACE
[2019-07-10 19:54] VITALS: BP 118/49
--- NOTE | 2019-07-11 05:00 | NUR ---
STEADY GAIT UP TO BATHROOM WITH WALKER AND SBA. STOOL SAMPLE SENT TO LAB FOR HEMOCCULT. PLEASANT AND PAIN-FREE. RIJ DIALYSIS CATHETER DRESSING DRY AND INTACT.
[2019-07-11 05:40] LABS: HEMOGLOBIN 6.7 gm/dL (12.0-15.0)
[2019-07-11 05:42] LABS: HEMATOCRIT 20.4 % (37.0-47.0); MCH 27.6 pg (26.0-34.0); MCHC 32.9 g/dL (28.0-37.0); RBC 2.43 mil/uL (4.20-5.00); RDW 20.8 % (10.5-14.5); WBC 8.1 thou/uL (4.0-11.0)
[2019-07-11 06:00] LABS: ALBUMIN 2.2 g/dL (3.4-5.0); CALCIUM 7.9 mg/dL (8.5-10.1); CREATININE 7.1 mg/dL (0.6-1.0); PHOSPHORUS 7.4 mg/dL (2.5-4.9); POTASSIUM 4.5 mmol/L (3.5-5.1)
[2019-07-11 08:00] VITALS: BP 132/58
[2019-07-11 14:37] VITALS: BP 122/59; BP 135/66
--- NOTE | 2019-07-11 15:43 | NUR ---
ASSUMED CARES AT 0700. PT AWAKE, ALERT AND ORIENTED*4. DENIES PAIN. VITALS STABLE. HGB 6.7 THIS AM, CROSS &TYPE COMPLETED, 1UNIT OF RBC TRANSFUSING NOW STARTED AT 1450. NO S&S OF BLOOD TRANSFUSION REACTION NOTED IN THE FIRST 15MINS, WILL CONTINUE TO MONITOR. PT C/O FATIGUE, SOB WITH EXERCION, THERAPY WITHHELD TODAY. PT CONTINUES TO HAVE EDEMA IN BLE, WORSE ON RLE. JACKIE HOSE IN PLACE AND EXTREMITIES ELEVATED. UP WITH 1 MIN ASSIST, GB AND WALKER. Q1H VISUAL CHECK. CALL LIGHT WITHIN REACH. FALL PRECAUTIONS IN PLACE
[2019-07-11 19:45] VITALS: BP 114/55
--- NOTE | 2019-07-12 02:12 | NUR ---
UP TO TOILET WITH SBA AND WALKER. DRINKING FLUIDS IMMEDIATELY BEFORE NIDNIGHT IN ANTICIPATION OF BEING NPO PRIOR TO SWALLOWING CAPSULE WHICH SEARCHES FOR GI BLEED. HOLDING ELIQUIS. PLEASANT. RIGHT IJ CATHETER INTACT
[2019-07-12 08:00] VITALS: BP 110/62; BP 115/60
[2019-07-12 09:01] LABS: HEMATOCRIT 22.1 % (37.0-47.0); HEMOGLOBIN 7.4 gm/dL (12.0-15.0); MCHC 33.2 g/dL (28.0-37.0); MCV 84.3 fL (80.0-100.0); RBC 2.63 mil/uL (4.20-5.00); RDW 20.1 % (10.5-14.5); WBC 7.8 thou/uL (4.0-11.0)
[2019-07-12 09:12] LABS: ALBUMIN 2.3 g/dL (3.4-5.0); CALCIUM 7.9 mg/dL (8.5-10.1); CREATININE 6.8 mg/dL (0.6-1.0); PHOSPHORUS 6.4 mg/dL (2.5-4.9); POTASSIUM 3.7 mmol/L (3.5-5.1)
--- NOTE | 2019-07-12 12:40 | NUR ---
Nutrition: Based on labs, REC add renal to diet order.
--- NOTE | 2019-07-12 15:17 | NUR ---
ASSUMED CARE OF THE PT AT 0700. PT DID A VIDEO CAPSULE, PT CAN DRINK FLUIDS AFTER 2PM AND CAN EAT AFTER 4PM, REMOVE THE BELT AT 2000 THIS EVENING. ELOQUIS IS ON HOLD DUE TO BLEEDING IN STOOL, HAD A BM TODAY WITH STREAKS OF BLOOD. VS ARE NORMAL. PT USES CPAP WHEN ASLEEP. R WRIST IV DRY AND INTACT, R IV NECK DRY AND INTACT. PT IS NOT A FALL RISK BUT FALL PRECAUTIONS ARE IN PLACE/ PT STILL CALLS OUT BEFORE GETTING OUT OF BED. CALL LIGHT IS WITHIN REACH, BED IN THE LOWEST POSITION. WILL CONTINUE TO MONITOR THE PT.
[2019-07-12 20:27] VITALS: BP 131/57
--- NOTE | 2019-07-13 00:56 | NUR ---
ASSUMED CARE AROUND 1900, PT A&O X 4, NO ACUTE DISTRESS NOTED. VSS O2 ON RA, WEARS CPAP AT HS. PT DENIES ANY PAIN OR DISCOMFORT DURING SHIFT. MEDS GIVEN PER ORDERS. IV TO R WRIST, FLUSHES WELL. PT RECEIVED PRN MIKEIEN FOR SLEEP AND IS RESTING WELL, CALL LIGHT WITHIN REACH, WILL CONTINUE TO MONITOR PER POC.
[2019-07-13 05:50] LABS: ALBUMIN 2.3 g/dL (3.4-5.0); CALCIUM 7.5 mg/dL (8.5-10.1); CREATININE 6.3 mg/dL (0.6-1.0); PHOSPHORUS 6.1 mg/dL (2.5-4.9); POTASSIUM 3.5 mmol/L (3.5-5.1)
[2019-07-13 08:00] VITALS: BP 118/52
--- NOTE | 2019-07-13 08:12 | NUR ---
ASSUMED CARE AT 0700. PATIENT IS ALERT AND ORIENTED X4. PATIENT COLON'S, MULTIPLE SCLEROSIS NURSE ARE EQUAL. LUNGS ARE CLEAR. ABD IS SOFT WITH BSX4. PATIENT IS UP WITH GAIT BELT AND WALKER TO BATHROOM AND ASSIST OF 1 STAFF. FALL AND SAFETY PROTOCOLS IN PLACE. DENIES PAIN AT THIS TIME. CONTINUES TO PROGRESS TOWARDS D/C GOALS. WILL CONTINUE TO MONITER.
--- NOTE | 2019-07-13 08:14 | NUR ---
PATIENT HAS RIGHT IJ FOR DIALYSIS AND S.L. IN HER RIGHT WRIST. IV SITES WITHOUT REDNESS OR SWELLING. WILL CONTINUE TO MONITER.
--- NOTE | 2019-07-13 10:13 | HC ---
[facility] [place] [address] CONSULTATION Name: KATHERINE MATHEWS Room #: 511-P ADM IN M.R.#: [id number] Admission: 07/07/19 Attend Phys: Carmelo Retana MD Discharge: Date of : 54 Report #: [id number] THIS REPORT FOR: cc: SANDY - Family physician unknown SANDY - Family physician unknown Suleman Loomis PhD ~ CC: Camrelo DELGADO unknown DATE OF SERVICE: 07/12/2019 BEHAVIORAL STATUS EXAM ATTENDING PHYSICIAN: Carmelo Retana MD DETONATOR MAKER: Suleman Loomis, PhD CLINICAL PRESENTATION: The patient is a 68-year-old white female admitted to the [facility] on 06/26/2019 with increased lower extremity weakness, pain and inability to ambulate or transfer. The patient was diagnosed with severe rhabdomyolysis with a CPK greater than 20,000. The patient also was monitored for acute renal insufficiency with a creatinine over 8. Her diagnoses included shock liver with severe hyponatremia, severe protein-calorie malnutrition in light of morbid obesity. Her diagnostic assessment on admission to the rehabilitation unit was severe acute rhabdomyolysis, medical complexity with generalized debility, severe acute renal insufficiency with creatinine up to 8.6, now down to 7.9, superimposed on chronic kidney disease, findings consistent with acute tubular necrosis, severe hyponatremia, sodium now improved, bilateral lower extremity arterial insufficiency with right foot ischemia likely distal emboli versus vasculitis, history of acute on chronic diastolic heart failure, history of morbid obesity, peripheral neuropathy and elevated liver function with Gastroenterology involved. A complete description of her medical condition and history can be found in her medical record. Neuropsychological consultation was requested to provide assistance in the assessment of cognitive and emotional status and to provide recommendations and services. Prior to this most recent admission, the patient was living independently in her own home. She carries a diagnosis of posttraumatic stress disorder from a medical procedure about 4 years ago in which she was undergoing ablation for AFIB and experienced complications. Reported is prior treatment for the PTSD and depression. 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 She has 2 daughters. The patient in 1991. Her family is described as very attentive and supportive. [facility] [address] [place] [address] CONSULTATION Name: KATHERINE MATHEWS Room #: 511-P [facility] IN .R.#: [id number] Admission: 07/07/19 Attend Phys: Carmelo Retana MD Discharge: Date of : 54 Report #: [id number] TECHNIQUES UTILIZED: Clinical interview, review of medical records, staff consultation and behavioral observation, mini mental status exam 2 standard version, clock drawing. EXAMINATION FINDINGS: The patient was alert and cooperative with the assessment. She does not present with an aphasia. There is no report of auditory or visual hallucinations. She describes her symptoms to include poor sleep in the hospital. Anxiety is somewhat elevated. She does not report difficulty with appetite, memory or word finding. Mood is described as optimistic. Her performance on the MMSE 2 brief version is within normal limits with a raw score of 15 of 16. She was alert and oriented. The patient was 2/3 for immediate recall of 3 items after a brief time delay and distraction. Performance on the MMSE 2 standard version was 29 of 30, which is within normal limits. Clock drawing was within normal limits for both structure and hand placement. The patient is presenting with a history of posttraumatic stress disorder and treatment for depression. She has a mild degree of anxiety currently. Cognition appears within normal limits. DIAGNOSTIC IMPRESSION: Adjustment disorder with anxious mood. Posttraumatic stress disorder -- by history. RECOMMENDATIONS: Continued treatment for anxiety disorder appears indicated. The use of cognitive behavior psychotherapy can be of benefit in the management of anxiety. The use of relaxation techniques will also be helpful. The patient will likely show an improvement in sleep and diminished anxiety upon her return to a familiar environment following treatment. Thank you very much for allowing me to provide the consultation on this patient. <ELECTRONICALLY SIGNED> By: Suleman Loomis, PhD 07/13/19 1013 [id number] Suleman Loomis, PhD /nt
[2019-07-13 19:15] VITALS: BP 141/61
--- NOTE | 2019-07-13 23:35 | NUR ---
PT ALERT AND ORIENTED X 4. AMB TO BR WITH WALKER AND ASSIST X 1 WITHOUT DIFFICULTY. PT REFUSED MIRALAX AND HYDROCORTISONE SUPP AT HS. NO BM SO FAR TONIGHT. PT DENIES PAIN OR DISCOMFORT. PT CHECKED ON HOURLY ROUNDS.
[2019-07-14 08:04] VITALS: BP 145/66
[2019-07-14 08:51] LABS: HEMOGLOBIN 6.9 gm/dL (12.0-15.0)
[2019-07-14 08:53] LABS: HEMATOCRIT 20.7 % (37.0-47.0); MCH 28.5 pg (26.0-34.0); MCHC 33.5 g/dL (28.0-37.0); PLATELET COUNT 213 thou/uL (150-400); RBC 2.43 mil/uL (4.20-5.00); RDW 20.2 % (10.5-14.5); WBC 7.5 thou/uL (4.0-11.0)
[2019-07-14 09:05] LABS: CALCIUM 7.6 mg/dL (8.5-10.1); CREATININE 5.8 mg/dL (0.6-1.0); MAGNESIUM 2.3 mg/dL (1.8-2.4); PHOSPHORUS 5.7 mg/dL (2.5-4.9)
[2019-07-14 09:12] LABS: POTASSIUM 2.9 mmol/L (3.5-5.1)
[2019-07-14 09:58] LABS: ABSOLUTE NEUTROPHILS 6.6 thou/uL (1.4-8.2); PLATELET ESTIMATE NORMAL
--- NOTE | 2019-07-14 10:11 | P ---
[facility] [place] [address] [place] [address] PROCEDURE REPORT Name: KATHERINE MATHEWS Room #: 511-P ADM IN M.R.#: [id number] Admission: 07/07/19 Attend Phys: Carmelo Retana MD Discharge: Date of : 54 Report #: [id number] THIS REPORT FOR: cc: FAM - Family physician unknown FAM - Family physician unknown Tre Meadows MD ~ CC: Carmelo Retana [facility] unknown INPATIENT SMALL BOWEL CAPSULE STUDY BRIEF HISTORY: The patient is a 68-year-old woman with evidence of anemia and melena. Upper endoscopy and colonoscopy have failed to identify a source of blood loss and bleeding. PREOPERATIVE DIAGNOSES: Anemia and gastrointestinal bleeding. POSTOPERATIVE DIAGNOSES: Small bowel diverticulum without evidence of bleeding. MEDICATIONS: None. SPECIMEN: None. ESTIMATED BLOOD LOSS: None. PROCEDURE: Small bowel capsule study. FINDINGS: The patient was brought to the GI lab and swallowed the small bowel capsule. The data was uploaded into the computer and images were reviewed. The small bowel transit time was 5 hours and 26 minutes. There was no evidence of bleeding. No ulcers or vascular ectasias were seen. The only abnormality found was a small bowel diverticulum. The mucosa within the diverticulum appeared unremarkable. There is no evidence of ulcer or bleeding. The remainder of the exam was unremarkable. The capsule passed into the colon and images of the cecum were noted. DISPOSITION: Source of GI bleeding, not identified. Continue to monitor hemoglobin for bleeding. <ELECTRONICALLY SIGNED> By: Tre Meadows MD 07/14/19 1011 1134 1253 Tre Meadows MD /nt
--- NOTE | 2019-07-14 12:09 | NUR ---
ASSUMED CARE AROUND 0700, PT A&O X 4, NO ACUTE DISTRESS NOTED. VSS, O2 ON RA. PT DENIES ANY PAIN OR DISCOMFORT. MEDS GIVEN ORDERED. PT HAD CRITICAL K+ 2.9 AND HGB OF 6.9, NOTOFIED PROVIDER PLEATING MACHINE OPERATOR, ORDERS GIVEN FOR 20MEQ K+ AND TRANSFUSE 1UNIT PRBC. IV STARTED BY IV TEAM IN LFA. CONSENT FOR BLOOD SIGNED, AWAITING BLOOD FROM BLOOD BANK. PT CONTINENT, BM THIS MORNING BROWN AND FORMED, NO BLOODY STOOLS NOTED. PT AWAKE, BED IN LOWEST POSITION, CALL LIGHT WITHIN REACH, WILL CONTINUE TO MONITOR PER POC.
[2019-07-14 15:48] VITALS: BP 129/48; BP 133/64
[2019-07-14 20:15] VITALS: BP 133/64
--- NOTE | 2019-07-14 23:21 | NUR ---
PT ALERT AND ORIENTED X 4. AMB TO BR WITH WALKER AND ASSIST X 1 WITHOUT DIFFICULTY. BLOOD INFUSED WITHOUT S/S OF TRANSFUSION REACTION. VSS. PT C/O BACK PAIN AT START OF SHIFT. TYLENOL GIVEN WITH PARTIAL PAIN RELIEF VERBALIZED. RIJ DIALYSIS CATH INTACT WITH DRESSING C/D/I. PT APPEARS TO BE SLEEPING ON HOURLY ROUNDS.
[2019-07-15 05:01] LABS: ALBUMIN 2.1 g/dL (3.4-5.0); CALCIUM 7.5 mg/dL (8.5-10.1); CREATININE 5.3 mg/dL (0.6-1.0); PHOSPHORUS 5.3 mg/dL (2.5-4.9); POTASSIUM 3.3 mmol/L (3.5-5.1)
[2019-07-15 07:29] VITALS: BP 149/74
[2019-07-15 10:04] LABS: BASOPHILS 0.9 % (0.0-2.0); EOSINOPHILS 0.8 % (0.0-3.0); HEMATOCRIT 22.9 % (37.0-47.0); HEMOGLOBIN 7.6 gm/dL (12.0-15.0); LYMPHOCYTES 8.3 % (24.0-44.0); MCH 28.8 pg (26.0-34.0); MCHC 33.3 g/dL (28.0-37.0); MCV 86.5 fL (80.0-100.0); MONOCYTES 7.1 % (1.0-8.0); PLATELET COUNT 209 thou/uL (150-400); POLYS 82.9 % (36.0-66.0); RBC 2.65 mil/uL (4.20-5.00); RDW 19.5 % (10.5-14.5); WBC 7.2 thou/uL (4.0-11.0)
[2019-07-15 13:15] LABS: ANISOCYTOSIS 2+
[2019-07-15 13:16] LABS: OVALOCYTES FEW
--- NOTE | 2019-07-15 15:43 | NUR ---
ASSUMED CARES AT 0700. PT AWAKE, ALERT AND ORIENTED*4. DENIES PAIN AT THIS TIME. VITALS REMAIN STABLE. PT CONTINUES TO HAVE BLE EDEMA, EXTREMITIES ELEVATED. IJ REMAINS INTACT, ORDER RECEIVED TO DC, VASCULAR TEAM CONTACTED. RIGHT FOREARM IV REMAINS DRY AND INTACT AND PATENT. PT UP WITH SBA, GB AND WALKER AND TOLERATED WELL.Q1H VISUAL CHECKS. CALL LIGHT WITHIN REACH. FALL PRECAUTIONS IN PLACE
[2019-07-15 20:13] VITALS: BP 151/71
--- NOTE | 2019-07-16 01:58 | NUR ---
ASSUMED CARE AROUND 1900, PT A&O X 4, NO ACUTE CHANGES NOTED. VSS, O2 ON RA, CPAP WORN AT HS. PT DENIES ANY PAIN OR DISCOMFORT. MEDS GIVEN PER ORDERS. IV TO RFA, FLUSHES WELL. PT CONTINENT OF B&B, USES BR. PT ASLEEP, CALL LIGHT WITHIN REACH, WILL CONTINUE TO MONITOR PER POC.
[2019-07-16 08:00] VITALS: BP 154/80
[2019-07-16 08:25] LABS: HEMATOCRIT 25.3 % (37.0-47.0); HEMOGLOBIN 8.5 gm/dL (12.0-15.0); MCHC 33.7 g/dL (28.0-37.0); MCV 86.1 fL (80.0-100.0); RBC 2.94 mil/uL (4.20-5.00); RDW 19.5 % (10.5-14.5); WBC 7.4 thou/uL (4.0-11.0)
--- NOTE | 2019-07-16 08:53 | NUR ---
ASSUMED CARE AT 0700. PATIENT IS ALERT AND ORIENTED X4. PATIENT COLON'S, CLERICAL CLERK ARE EQUAL. LUNGS ARE CLEAR. ABD IS SOFT WITH BSX4. UP IN SIDE OF BED FOR BREAKFAST. UP WITH ASSIST OF 1 STAFF AND GAIT BELT WITH SBA. FALL AND SAFETY PROTOCOLS IN PLACE. DENIES PAIN. CONTINUES TO PROGRESS TOWARDS D/C GOALS. WILL CONTINUE TO MONITER.
--- NOTE | 2019-07-16 08:57 | NUR ---
NUCULAR MED TEST ORDERED BY Titi (MECMARINE TEST). PATIENT IS NPO, AND PLAN IS TO SCAN HER AT 1430. PATIENT INFORMED OF PROCEDURE BEING ORDERED, AND BEING NPO. WILL CONTINUE TO MONITER.
[2019-07-16 10:04] VITALS: BP 154/80
--- NOTE | 2019-07-16 10:04 | NUR ---
REFERRAL FAXED TO [facility] SPOKE WITH RADHA IN INTAKE SHE RECEIVED REFERRAL AND WILL ACCEPT AT [place].
[2019-07-16 12:59] LABS: CALCIUM 7.9 mg/dL (8.5-10.1); CREATININE 4.9 mg/dL (0.6-1.0); POTASSIUM 3.4 mmol/L (3.5-5.1)
--- NOTE | 2019-07-16 13:18 | NUR ---
team meeting, recommendation that pt is going to get GI procedure meckle today and dc tomorrow 27th joyce méndez ( pt and nursing). no dme needs.
[2019-07-16 19:12] VITALS: BP 124/52
--- NOTE | 2019-07-17 04:06 | NUR ---
Assumed pt care at 1900. Pt is A/OX4,VSS. Up with SBA/RW without any problems voiced. Continent of B&B. Denied pain on assessment,requested for Ambien at HS and effective. IV patent on RFA,flushes well. Resting quietly w/o distress, CPAP in place. Fall precautions in place,calls approp for help.
[2019-07-17 05:44] LABS: ALBUMIN 2.3 g/dL (3.4-5.0); CALCIUM 7.9 mg/dL (8.5-10.1); CREATININE 4.4 mg/dL (0.6-1.0); PHOSPHORUS 4.5 mg/dL (2.5-4.9); POTASSIUM 3.8 mmol/L (3.5-5.1)
[2019-07-17 08:00] VITALS: BP 152/56
[2019-07-17] MEDS ORDERED: COLACE100 MG PO (08:34)
[2019-07-17] MEDS ORDERED: SENNA8.6 MG PO (08:34)
[2019-07-17] MEDS ORDERED: IMDUR 30 MG TAB30 M1 PO (08:34)
[2019-07-17] MEDS ORDERED: MIRALAX17 GM PO (08:34)
[2019-07-17] MEDS ORDERED: CALCIUM ACETAT667 MG PO (08:34)
[2019-07-17 09:37] LABS: HEMATOCRIT 23.5 % (37.0-47.0); HEMOGLOBIN 7.7 gm/dL (12.0-15.0); MCH 28.8 pg (26.0-34.0); MCHC 32.9 g/dL (28.0-37.0); MCV 87.5 fL (80.0-100.0); RBC 2.68 mil/uL (4.20-5.00); RDW 19.7 % (10.5-14.5); WBC 6.4 thou/uL (4.0-11.0)
--- NOTE | 2019-07-17 10:26 | NUR ---
ASSUMED CARE AT 0700. REPORTS SLEPT GOOD LAST NIGHT.PATIENT IS ALERT AND ORIENTED X4. ABLE TO VOICE HER NEEDS. REASSESSMENT PER CHART. SOLAR ENERGY ENGINEER ARE EQUAL. LUNGS ARE CLEAR. ABD IS SOFT WITH BSX4. HAD BM TODAY. REFUSES MIRALAX THIS AM. UP IN SIDE OF BED FOR BREAKFAST. UP WITH ASSIST OF 1 STAFF AND GAIT BELT WITH SBA. OT AND PT OK FOR PT TO BE M.I IN ROOM. DOCTOR NALDO PUT ORDER IN. FALL AND SAFETY PROTOCOLS IN PLACE. DENIES PAIN. PT DISCHARG HOME WITH HH TODAY. DR. HERNANDEZ WAS HERE AND DISCUSSED WITH PT ABOUT FOLLOW UP WITH HIM AFTER DISCHARGE. WILL CONTINUE TO MONITOR.
[2019-07-17 10:34] VITALS: BP 154/80
[2019-07-17] MEDS ORDERED: ELIQUIS5 MG PO (10:51)
--- NOTE | 2019-07-17 11:22 | NUR ---
PT DISCHARGING TODAY TO HOME WITH [facility] FAXED DC ORDERS/SUMMARY SPOKE WITH QUINCY IN INTAKE SHE RECEIVED ORDERS AND WILL NOTIFY PT TIME OF VISITS.
[2019-07-17] MEDS ORDERED: NORCO 5-325 TA1 EAC1 PO (12:15)
--- NOTE | 2019-07-17 15:27 | NUR ---
Pt dcing home via family car this afternoon. HH finalized with Toya Richmond for start of care tomorrow. Pt has needed dme in place and PCP for f/u care.
--- NOTE | 2019-07-19 17:06 | H ---
[facility] [place] [address] [place] [address] HISTORY AND PHYSICAL Name: KATHERINE MATHEWS Room #: 511-P [facility] IN M.R.#: [id number] Admission: 07/07/19 Attend Phys: Carmelo Retana MD Discharge: 07/17/19 Date of : 54 Report #: [id number] THIS REPORT FOR: cc: SANDY - Family physician unknown SANDY - Family physician unknown Carmelo Retana MD ~ CC: Carmelo DELGADO unknown DATE OF SERVICE: 07/08/2019 HISTORY AND PHYSICAL/POSTADMISSION PHYSICIAN EVALUATION HISTORY OF PRESENT ILLNESS: The patient is a 68-year-old white female originally admitted to [facility] on 06/26/2019 with increased lower extremity weakness, pain and inability to ambulate or transfer. She was noted to have severe rhabdomyolysis with a CPK greater than 20,000. She was monitored with significant acute renal insufficiency and a creatinine that increased over 8. She was noted to have shock liver, severe hyponatremia, severe protein-calorie malnutrition, even in light of morbid obesity. She had bilateral lower extremity arterial insufficiency with right lower extremity ischemia thought due to either tiny emboli or vasculitis per Interventional Radiology. She did undergo an aortogram and bilateral lower extremity runoff angiogram 06/28/2019. The patient was monitored closely for acute tubular necrosis by Nephrology had a temporary dialysis catheter placed and has not needed dialysis to this point. She has significant functional mobility and ADL deficits and has been admitted now for acute in-hospital inpatient rehabilitation. Last sodium has improved to 135. Her creatinine has decreased from a peak of 8.6 down to 7.9. PAST MEDICAL HISTORY: Includes acute on chronic diastolic heart failure for which she was hospitalized 05/10/2019. She has a history of acute blood loss anemia of unclear etiology with GI workup, essentially negative. History of atrial fibrillation, status post ablation. History of degenerative arthritis, non-insulin dependent diabetes mellitus, PTSD and gout. She indicated a history of neuropathy, apparently from a slip and fall per her history. She also has a history of hypertension and hyperlipidemia. MEDICATIONS: Please see the full medication listing. ALLERGIES: SULFA. SOCIAL HISTORY: Lives with 2 granddaughter's in a house. There are 14 steps to get up to the main living area and there is no elevator. One of the granddaughter's works and the other one is at home. The patient did not utilize gait aids premorbidly. [address] [address] HISTORY AND PHYSICAL Name: KATHERINE MATHEWS Room #: 511-P [facility] IN ..#: [id number] Admission: 07/07/19 Attend Phys: Carmelo Retana MD Discharge: 07/17/19 Date of : 54 Report #: [id number] REVIEW OF SYSTEMS: No current complaints of chest pain, shortness of breath or abdominal discomfort. PHYSICAL EXAMINATION: GENERAL: The patient is a pleasant 68-year-old obese white female, in no obvious distress. VITAL SIGNS: Last recorded temperature 97.6, pulse 79, respirations 16, blood pressure 92/37. The patient is alert. HEENT: Appeared to be benign. NEUROLOGIC: Cranial nerves grossly intact. Facies are symmetric. CHEST: Sounded clear to auscultation. CARDIOVASCULAR: Regular rate and rhythm. ABDOMEN: Obese, bowel sounds positive, nontender. GENITOURINARY AND RECTAL: Deferred. EXTREMITIES: She has functional range of motion of both upper extremities with strength grade 4-/5. DTRs are trace to 1. Lower extremities, there is no focal calf swelling. Strength is grade 3+/5. Distal lower extremities appear warm. She appears to have good capillary refill. There is some mild decreased distal sensation consistent with her noted premorbid peripheral neuropathy with proprioception. The lower extremities appear well perfused. Functionally, she has been needing assist with basic transfers at least at a contact guard level. ASSESSMENT: A 68-year-old white female with the following problem list: 1. Severe acute rhabdomyolysis. 2. Medical complexity with generalized debilitation. 3. Severe acute renal insufficiency with a creatinine up to 8.6, now down to 7.9. This is superimposed on chronic kidney disease. Findings consistent with acute tubular necrosis. She has not needed dialysis to this point. 4. Severe hyponatremia, sodium is now improved. 5. Bilateral lower extremity arterial insufficiency with right foot ischemia likely distal emboli versus vasculitis. 6. History of acute on chronic diastolic heart failure. 7. History of morbid obesity. 8. Peripheral neuropathy. 9. Elevated liver function test with Gastroenterology involved. PLAN: The patient has been admitted for acute in-hospital inpatient rehabilitation. From a postadmission physician evaluation perspective, there are no relevant changes since the preadmission screening. Please see the above review of prior and current medical and functional conditions and comorbidities. Please see the patient's previous and current functional status. As far as risk of complications, the patient has multiple medical comorbidities as noted above. Initial plan of care involves the interdisciplinary acute inpatient rehabilitation program. Measurable functional goals would be for the patient to become modified independent with transfers, mobility and ADLs, so she can [address] [address] HISTORY AND PHYSICAL Name: KATHERINE MATHEWS Room #: 511-P [facility] IN ..#: [id number] Admission: 07/07/19 Attend Phys: Carmelo Retana MD Discharge: 07/17/19 Date of : 54 Report #: [id number] hopefully return back to her prior living situation. Prognosis is reasonably good with estimated length of stay probably at least 7-14 days. Potential barriers would include her multiple medical comorbidities and decreased functional status. The patient meets diagnostic criteria for an acute in-hospital inpatient rehabilitation stay. She meets medical necessity criteria. She does have the tolerance for therapies and has appropriate discharge goals back to the home setting. <ELECTRONICALLY SIGNED> By: Carmelo Retana MD 07/19/19 1706 [id number] Carmelo Retana MD /nt
== END 2019-07-17 13:10 | disposition home health service (06) | DRG 557 ==
PROVIDERS: Hospitalist; Internal Medicine; Nurse Practitioner; ADMIT Physical Medicine & Rehabilitation
PROC: 05HY33Z Insertion of Infusion Device into Upper Vein, Percutaneous Approach (ICD-10-PCS; 2019-07-09)
PROC: 30233N1 Transfusion of Nonautologous Red Blood Cells into Peripheral Vein, Percutaneous Approach (ICD-10-PCS; principal; 2019-07-11)
PROC: 5A09357 Assistance with Respiratory Ventilation, Less than 24 Consecutive Hours, Continuous Positive Airway Pressure (ICD-10-PCS; 2019-07-16)
DX: M62.82 Rhabdomyolysis (principal); N17.0 Acute kidney failure with tubular necrosis; E43 Unspecified severe protein-calorie malnutrition; K72.00 Acute and subacute hepatic failure without coma; E87.1 Hypo-osmolality and hyponatremia; N39.0 Urinary tract infection, site not specified; K92.1 Melena; K86.2 Cyst of pancreas; I50.32 Chronic diastolic (congestive) heart failure; I13.0 Hypertensive heart and chronic kidney disease with heart failure and stage 1 through stage 4 chronic kidney disease, or unspecified chronic kidney disease; R53.81 Other malaise; E66.01 Morbid (severe) obesity due to excess calories; E11.22 Type 2 diabetes mellitus with diabetic chronic kidney disease; E11.42 Type 2 diabetes mellitus with diabetic polyneuropathy; D72.829 Elevated white blood cell count, unspecified; F43.20 Adjustment disorder, unspecified; I48.91 Unspecified atrial fibrillation; M19.90 Unspecified osteoarthritis, unspecified site; M10.9 Gout, unspecified; E78.5 Hyperlipidemia, unspecified; I77.1 Stricture of artery; K57.10 Diverticulosis of small intestine without perforation or abscess without bleeding; I95.9 Hypotension, unspecified; E11.51 Type 2 diabetes mellitus with diabetic peripheral angiopathy without gangrene; N18.3 Chronic kidney disease, stage 3 (moderate); E03.9 Hypothyroidism, unspecified; F32.9 Major depressive disorder, single episode, unspecified; F41.9 Anxiety disorder, unspecified; G89.29 Other chronic pain; K59.00 Constipation, unspecified; D50.9 Iron deficiency anemia, unspecified; I99.8 Other disorder of circulatory system; Z90.710 Acquired absence of both cervix and uterus; Z90.722 Acquired absence of ovaries, bilateral; Z90.49 Acquired absence of other specified parts of digestive tract; Z86.14 Personal history of Methicillin resistant Staphylococcus aureus infection; Z95.1 Presence of aortocoronary bypass graft; Z82.49 Family history of ischemic heart disease and other diseases of the circulatory system; Z79.899 Other long term (current) drug therapy
CPT/HCPCS: 10112